=== PATIENT | female | born 1980 | race Caucasian/White ===

== ENCOUNTER 2016-10-18 05:05 | Inpatient (IN) | payer MEDICAID ==
[2016-10-18] MEDS ORDERED: Nalbuphine 20 MG/1 ML Amp IVPUSH PRN (12:47)
[2016-10-18] MEDS ORDERED: Sodium Chloride 0.9% 10 ML Syringe FLUSH PRN (12:47)
[2016-10-18] MEDS ORDERED: Ondansetron 4 MG/2 ML SDV IVPUSH PRN (12:47)
--- NOTE | 2016-10-18 12:50 | PCM.LDHP ---
L&D History of Present Illness - General Date of Service: 10/18/16 Admit Problem/Dx: Patient Status Order with Admit Dx/Problem 10/18/16 12:47 Patient Status [ADT] Routine Admission Diagnosis/Problem Admission Diagnosis/Problem Normal Source of Information: Patient History Limitations: Reports: No Limitations - History of Present Illness Introduction:: Patient is a 36-year-old 003 at 40-1/7 weeks gestation who presents for induction of labor. Doing well today. Having some intermittent contractions since last seen in clinic, but nothing consistent. Blood sugars have been well controlled. No other new concerns or complaints. 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: : 4 Para: 3 LMP (Approximate): Endocrine/Metabolic History: Reports: Diabetes, Gestational - Past Surgical History HEENT Surgical History: Reports: Oral Surgery Social & Family History - Tobacco Use Smoking Status *Q: Current Every Day Smoker Years of Tobacco use: 20 Packs/Tins Daily: 0.5 - Caffeine Use Caffeine Use: Reports: Coffee - Alcohol Use Alcohol Use History: No - Recreational Drug Use Recreational Drug Use: No H&P Review of Systems - Review of Systems: Review Of Systems: See Below General: Reports: No Symptoms Pulmonary: Reports: No Symptoms Cardiovascular: Reports: No Symptoms Gastrointestinal: Reports: No Symptoms Genitourinary: Reports: No Symptoms Musculoskeletal: Reports: No Symptoms Psychiatric: Reports: No Symptoms L&D Exam - Exam Exam: See Below - Vital Signs Weight: 125.509 kg - OB Specific Contraction Intensity: Mild Movement: Active Heart Tones: Present Heart Tones per Min: 130 Heart Rate (FHR) Variability: Moderate (6-25 bmp) Presentation: Vertex - Colin Score Colin Score Cervix Position: Midposition Colin Score Consistency: Soft Colin Score Effacement: >80% Colin Score Dilation: 1-2 cm Colin Score Infant's Station: -1 ,0 Colin Score Total: 9 - Exam General: Alert, Oriented, Cooperative Lungs: Clear to Auscultation, Normal Respiratory Effort Cardiovascular: Regular Rate, Regular Rhythm GI/Abdominal Exam: Soft, Non-Tender Genitourinary: Normal external exam Extremities: Normal Inspection Skin: Warm, Dry, Intact - Problem List (1) 40 weeks gestation of SNOMED Code(s): 45672648 ICD Code: Z3A.40 - 40 WEEKS GESTATION OF Status: Acute Current Visit: Yes (2) Gestational diabetes, diet controlled SNOMED Code(s): 64597232, 265653908 ICD Code: O24.410 - GESTATIONAL DIABETES MELLITUS IN , DIET CONTROLLED Status: Acute Current Visit: Yes Qualifiers: Trimester: third trimester Qualified Code(s): O24.410 - Gestational diabetes mellitus in , diet controlled (3) GBS (group B Streptococcus carrier), +RV culture, currently SNOMED Code(s): 24393379, 418144926 ICD Code: O99.820 - STREPTOCOCCUS B CARRIER STATE COMPLICATING Status: Acute Current Visit: Yes Problem List Initiated/Reviewed/Updated: Yes Orders Last 24hrs: Active Orders 24 hr Category Date Time Status Patient Status [ADT] Routine ADT 10/18/16 12:47 Active Activity as Tolerated [RC] PFP Care 10/18/16 12:47 Active Blood Glucose Check, Bedside [RC] Q4HR Care 10/18/16 12:49 Active Communication Order [RC] ASDIRECTED Care 10/18/16 12:47 Active Heart Tones [RC] ASDIRECTED Care 10/18/16 12:47 Active Notify Provider [RC] PFP Care 10/18/16 12:47 Active Notify Provider [RC] PRN Care 10/18/16 12:47 Active Peripheral IV Care [RC] . DIRECTED Care 10/18/16 12:47 Active Vital Signs [RC] PER UNIT ROUTINE Care 10/18/16 12:47 Active CBC W/O DIFF,HEMOGRAM [HEME] Routine Lab 10/18/16 12:47 Ordered TYPE AND SCREEN [BBK] Routine Lab 10/18/16 12:47 Ordered Clindamycin Phosphate [Cleocin] 900 mg Med 10/18/16 13:00 Ordered Sodium Chloride 0.9% [Normal Saline] 100 ml IV Q8H Lactated Ringers [Ringers, Lactated] 1,000 ml Med 10/18/16 13:00 Ordered IV ASDIRECTED Nalbuphine [Nubain] Med 10/18/16 12:47 Ordered 10 mg IVPUSH Q2H PRN Ondansetron [Zofran] Med 10/18/16 12:47 Ordered 4 mg IVPUSH Q4H PRN Oxytocin/Lactated Ringers [Pitocin in LR 10 Units/1,000 Med 10/18/16 13:00 Ordered ML] 10 unit in 1,000 ml IV .CONTINUOUS Sodium Chloride 0.9% [Saline Flush] Med 10/18/16 12:47 Ordered 10 ml FLUSH ASDIRECTED PRN Electronic Heart Tones Ext w TOCO [WOMSER] Oth 10/18/16 12:47 Ordered Routine Electronic Heart Tones Internal [WOMSER] Per Unit Ot 10/18/16 12:47 Ordered Routine Peripheral IV Insertion Adult [OM.PC] Routine Oth 10/18/16 12:47 Ordered Resuscitation Status Routine Resus Stat 10/18/16 12:47 Ordered Medication Orders Clindamycin Phosphate 900 mg/ (Sodium Chloride) 106 mls @ 100 mls/hr IV Q8H GEOVANNI Lactated Ringer's (Ringers, Lactated) 1,000 mls @ 40 mls/hr IV ASDIRECTED GEOVANNI Oxytocin/Lactated Ringer's (Pitocin In Lr 10 Units/1,000 Ml) 10 unit in 1,000 mls @ 500 mls/hr IV .CONTINUOUS GEOVANNI PRN Reason: Protocol Nalbuphine HCl (Nubain) 10 mg IVPUSH Q2H PRN PRN Reason: Pain (moderate 4-6) Ondansetron HCl (Zofran) 4 mg IVPUSH Q4H PRN PRN Reason: Nausea/Vomiting Assessment/Plan Comment:: 36 year old at 40-1/7 weeks gestation presents for induction of labor for gestational diabetes * CBC and type and screen * Blood sugars every 4 hours for now increasing to every 1 in active labor * GBS positive with penicillin and cephalosporin allergies. Will start clindamycin * Patient prefers to defer Pitocin if possible with induction. Wagner bulb placed and will proceed with AROM after closer to second dose of antibiotics * Anticipate Kelsey Garrido MD
[2016-10-18] MEDS ORDERED: Oxytocin/Lactated Ringers 10 UNIT/1,000 ML BAG IV SCH (13:00)
[2016-10-18] MEDS: Clindamycin Phosphate 900 MG in Sodium Chloride 0.9% 100 ML IV SCH ×2 (13:45→20:27)
--- NOTE | 2016-10-18 16:53 | PCM.PNLD ---
Labor Progress Note - VS & Meds Vital Signs: Last Vital Signs Temp 36.8 C 10/18/16 12:47 Pulse 88 10/18/16 12:47 Resp 16 10/18/16 12:47 BP 108/60 10/18/16 12:47 Pulse Ox Active Medications: Current Medications Clindamycin Phosphate 900 mg/ (Sodium Chloride) 106 mls @ 212 mls/hr IV Q8H GEOVANNI Last Admin: 10/18/16 13:45 Dose: 212 mls/hr Lactated Ringer's (Ringers, Lactated) 1,000 mls @ 40 mls/hr IV ASDIRECTED GEOVANNI Oxytocin/Lactated Ringer's (Pitocin In Lr 10 Units/1,000 Ml) 10 unit in 1,000 mls @ 500 mls/hr IV .CONTINUOUS GEOVANNI PRN Reason: Protocol Oxytocin/Lactated Ringer's (Pitocin In Lr 10 Units/1,000 Ml) 10 unit in 1,000 mls @ 12 mls/hr IV TITRATE GEOVANNI; 2 MUNITS/MIN PRN Reason: Protocol Nalbuphine HCl (Nubain) 10 mg IVPUSH Q2H PRN PRN Reason: Pain (moderate 4-6) Ondansetron HCl (Zofran) 4 mg IVPUSH Q4H PRN PRN Reason: Nausea/Vomiting Sodium Chloride (Saline Flush) 10 ml FLUSH ASDIRECTED PRN PRN Reason: Keep Vein Open - Uterine Contractions Uterine Monitoring Mode: External [place] Contraction Intensity: Mild to Moderate Uterine Resting Tone: Soft - Monitoring Monitor Mode: External Ultrasound Heart Rate (FHR) Baseline: 135 Heart Rate (FHR) Variability: Moderate (6-25 bmp) Accelerations: Present, 15x15 Decelerations: None Strip Review: Category I - Labor Progress (Free Text) Labor Progress: Patient doing well. Bergman bulb still in place. Will start pitocin now. Will AROM when bergman bulb out. Continue Clindamycin for GBS prophylaxis
[2016-10-18] MEDS: Lactated Ringers 1,000 ML IV SCH (17:15)
[2016-10-18] MEDS: Oxytocin/Lactated Ringers 10 UNIT/1,000 ML BAG IV SCH (17:15)
--- NOTE | 2016-10-18 19:38 | PCM.PNLD ---
Labor Progress Note - VS & Meds Vital Signs: Last Vital Signs Temp 36.8 C 10/18/16 12:47 Pulse 88 10/18/16 12:47 Resp 16 10/18/16 12:47 BP 108/60 10/18/16 12:47 Pulse Ox Active Medications: Current Medications Clindamycin Phosphate 900 mg/ (Sodium Chloride) 106 mls @ 212 mls/hr IV Q8H GEOVANNI Last Admin: 10/18/16 13:45 Dose: 212 mls/hr Lactated Ringer's (Ringers, Lactated) 1,000 mls @ 40 mls/hr IV ASDIRECTED GEOVANNI Last Admin: 10/18/16 17:15 Dose: 40 mls/hr Oxytocin/Lactated Ringer's (Pitocin In Lr 10 Units/1,000 Ml) 10 unit in 1,000 mls @ 500 mls/hr IV .CONTINUOUS GEOVANNI PRN Reason: Protocol Oxytocin/Lactated Ringer's (Pitocin In Lr 10 Units/1,000 Ml) 10 unit in 1,000 mls @ 12 mls/hr IV TITRATE GEOVANNI; 2 MUNITS/MIN PRN Reason: Protocol Last Titration: 10/18/16 18:45 Dose: 8 munits/min, 48 mls/hr Nalbuphine HCl (Nubain) 10 mg IVPUSH Q2H PRN PRN Reason: Pain (moderate 4-6) Ondansetron HCl (Zofran) 4 mg IVPUSH Q4H PRN PRN Reason: Nausea/Vomiting Sodium Chloride (Saline Flush) 10 ml FLUSH ASDIRECTED PRN PRN Reason: Keep Vein Open - Uterine Contractions Uterine Monitoring Mode: External [place] Contraction Intensity: Moderate Uterine Resting Tone: Soft - Monitoring Monitor Mode: External Ultrasound Heart Rate (FHR) Baseline: 130 Heart Rate (FHR) Variability: Moderate (6-25 bmp) Accelerations: Present, 15x15 Decelerations: None Strip Review: Category I - Vaginal Exam Dilation (cm): 4 Effacement (Percent): 80 Station: -1 Cervical Position: Midposition - Labor Progress (Free Text) Labor Progress: Patient doing well. Pitocin at 8. Wagner bulb just came out. AROM performed with release of clear fluid. Next dose of Clindamycin due at 2100. Continue present management
[2016-10-19] MEDS ORDERED: Calcium Carbonate 500 MG Tab.Chew PO PRN (00:10)
[2016-10-19] MEDS: Lactated Ringers 1,000 ML IV SCH ×2 (00:36→02:16)
[2016-10-19] MEDS ORDERED: Bupivacaine/fentaNYL/NS 100 ML Bag EPIDUR SCH (00:45)
--- NOTE | 2016-10-19 00:45 | PCM.PREANE ---
Preanesthetic Assessment - Procedure Proposed Procedure: Continuous labor epidural - Anesthesia/Transfusion/Family Hx Anesthesia History: No Prior Anesthesia Family History of Anesthesia Reaction: No Transfusion History: No Prior Transfusion(s) - Review of Systems General: No Symptoms Pulmonary: No Symptoms Cardiovascular: No Symptoms Gastrointestinal: No Symptoms Neurological: No Symptoms Other: Reports: None, Diabetes (gestational with current ) - Physical Assessment NPO Status Date: 10/19/16 NPO Status Time: 19:00 Respiratory Rate: 16 Vital Signs: Last Vital Signs Temp 36.8 C 10/18/16 12:47 Pulse 88 10/18/16 12:47 Resp 16 10/18/16 12:47 BP 108/60 10/18/16 12:47 Pulse Ox Height: 1.65 m Weight: 122.47 kg ASA Class: 2 Mental Status: Alert & Oriented x3 Airway Class: Mallampati = 2 Dentition: Reports: Caries (Poor dentition) Thyro-Mental Finger Breadths: 3 Mouth Opening Finger Breadths: 3 ROM/Head Extension: Full Lungs: Clear to Auscultation, Normal Respiratory Effort Cardiovascular: Regular Rate, Regular Rhythm, No Murmurs - Lab Values: Laboratory Last Values WBC 10.06 K/mm3 (3.98-10.04) H 10/18/16 12:24 RBC 4.67 M/mm3 (3.98-5.22) 10/18/16 12:24 Hgb 12.0 gm/L (11.2-15.7) 10/18/16 12:24 Hct 36.7 % (34.1-44.9) 10/18/16 12:24 MCV 78.6 fl (79.4-94.8) L 10/18/16 12:24 MCH 25.7 pg (25.6-32.2) 10/18/16 12:24 MCHC 32.7 g/dl (32.2-35.5) 10/18/16 12:24 RDW Std Deviation 44.6 fL (36.4-46.3) 10/18/16 12:24 Plt Count 361 K/mm3 (182-369) 10/18/16 12:24 MPV 10.2 fl (9.4-12.3) 10/18/16 12:24 POC Glucose 98 mg/dL (70-105) 07/20/17 00:34 Blood Type A POSITIVE 10/18/16 12:24 Gel Antibody Screen Negative 10/18/16 12:24 - Allergies Allergies/Adverse Reactions: Allergies Allergy/AdvReac Type Severity Reaction Status Date / Time amoxicillin Allergy Severe Anaphylactic Verified 10/05/16 11:36 Shock cefaclor [From Ceclor] Allergy Hives Verified 03/06/16 17:40 Penicillins Allergy Hives Verified 03/06/16 17:40 prochlorperazine Allergy Hives Verified 03/06/16 17:40 [From Compazine] Sulfa (Sulfonamide Allergy Hives Verified 03/06/16 17:40 Antibiotics) - Acknowledgements Anesthesia Type Planned: Epidural Pt an Appropriate Candidate for the Planned Anesthesia: Yes Alternatives and Risks of Anesthesia Discussed w Pt/Guardian: Yes Pt/Guardian Understands and Agrees with Anesthesia Plan: Yes PreAnesthesia Questionnaire Respiratory History: Reports: Asthma 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: Endocrine/Metabolic History: Reports: Diabetes, Gestational, Obesity/BMI 30+ - Past Surgical History HEENT Surgical History: Reports: Oral Surgery - SUBSTANCE USE Smoking Status *Q: Current Every Day Smoker (1/2 ppd x 20 yrs) Tobacco Use Within Last Twelve Months: Cigarettes Second Hand Smoke Exposure: Yes Days Per Week of Alcohol Use: 0 Recreational Drug Use History: No - HOME MEDS Home Medications: Home Meds Cmb#95/Iron/FA/DHA [ + Dha Combo Pack] 1 tab PO DAILY 03/06/16 [History] - CURRENT (IN HOUSE) MEDS Current Meds: Current Medications Calcium Carbonate/Glycine (Tums) 500 mg PO Q2HR PRN PRN Reason: Indigestion Clindamycin Phosphate 900 mg/ (Sodium Chloride) 106 mls @ 212 mls/hr IV Q8H [facility] Last Admin: 10/18/16 20:27 Dose: 212 mls/hr Lactated Ringer's (Ringers, Lactated) 1,000 mls @ 40 mls/hr IV ASDIRECTED [facility] Last Admin: 10/19/16 00:36 Dose: 40 mls/hr Oxytocin/Lactated Ringer's (Pitocin In Lr 10 Units/1,000 Ml) 10 unit in 1,000 mls @ 500 mls/hr IV .CONTINUOUS GEOVANNI PRN Reason: Protocol Oxytocin/Lactated Ringer's (Pitocin In Lr 10 Units/1,000 Ml) 10 unit in 1,000 mls @ 12 mls/hr IV TITRATE GEOVANNI; 2 MUNITS/MIN PRN Reason: Protocol Last Titration: 10/18/16 18:45 Dose: 8 munits/min, 48 mls/hr Nalbuphine HCl (Nubain) 10 mg IVPUSH Q2H PRN PRN Reason: Pain (moderate 4-6) Last Admin: 10/18/16 21:03 Dose: 10 mg Ondansetron HCl (Zofran) 4 mg IVPUSH Q4H PRN PRN Reason: Nausea/Vomiting Sodium Chloride (Saline Flush) 10 ml FLUSH ASDIRECTED PRN PRN Reason: Keep Vein Open
[2016-10-19] MEDS ORDERED: Sodium Chloride 0.9% 10 ML ONE (01:19)
--- NOTE | 2016-10-19 05:05 | PCM.DEL ---
L & D Note - General Info Date of Service: 10/19/16 - Delivery Note Labor: Induced by ARM, Induced by Oxytocin Delivery Outcome: Livebirth Infant Delivery Method: Spontaneous Vaginal Delivery Infant Delivery Mode: Spontaneous Presentation: Right Occiput Anterior (JENNIFER) Nuchal Cord: Present, Reduced Anesthesia Type: Epidural Amniotic Fluid Description: Clear Episiotomy Type: None Laceration: None Placenta: Intact, Spontaneous Cord: 3 Vessels Estimated Blood Loss: 250 : Bulb Syringe, Stimulated, Warmed, [place] Used, Warmer Used Delivery Comments (Free Text/Narrative):: Patient found to be complete and began pushing. With maternal pushing effort head delivered from an JENNIFER presentation. Nuchal cord present and reduced. With gentle downward traction shoulders and body delivered. Infant placed on maternal abdomen. Cord clamped and cut. Cord blood obtained. Placenta allowed time to separate and expelled. Inspection of the perineum showed no lacerations. - Patient Data Vitals - most recent: Last Vital Signs Temp 36.8 C 10/18/16 12:47 Pulse 88 10/18/16 12:47 Resp 16 10/19/16 00:47 BP 108/60 10/18/16 12:47 Pulse Ox Weight - most recent: 122.47 kg I&O - last 24 hours: Intake & Output 10/18/16 10/18/16 10/19/16 14:59 22:59 06:59 Intake Total 290 Balance 290 Lab Results last 24 hrs: Laboratory Results - last 24 hr 10/18/16 10/18/16 10/18/16 Range/Units 12:24 12:24 16:30 WBC 10.06 H (3.98-10.04) K/mm3 RBC 4.67 (3.98-5.22) M/mm3 Hgb 12.0 (11.2-15.7) gm/L Hct 36.7 (34.1-44.9) % MCV 78.6 L (79.4-94.8) fl MCH 25.7 (25.6-32.2) pg MCHC 32.7 (32.2-35.5) g/dl RDW Std Deviation 44.6 (36.4-46.3) fL Plt Count 361 (182-369) K/mm3 MPV 10.2 (9.4-12.3) fl POC Glucose 93 (70-105) mg/dL Blood Type A POSITIVE Gel Antibody Screen Negative 10/18/16 10/18/16 10/19/16 Range/Units 20:25 22:13 00:34 WBC (3.98-10.04) K/mm3 RBC (3.98-5.22) M/mm3 Hgb (11.2-15.7) gm/L Hct (34.1-44.9) % MCV (79.4-94.8) fl MCH (25.6-32.2) pg MCHC (32.2-35.5) g/dl RDW Std Deviation (36.4-46.3) fL Plt Count (182-369) K/mm3 MPV (9.4-12.3) fl POC Glucose 107 H 122 H 98 (70-105) mg/dL Blood Type Gel Antibody Screen 10/19/16 Range/Units 03:25 WBC (3.98-10.04) K/mm3 RBC (3.98-5.22) M/mm3 Hgb (11.2-15.7) gm/L Hct (34.1-44.9) % MCV (79.4-94.8) fl MCH (25.6-32.2) pg MCHC (32.2-35.5) g/dl RDW Std Deviation (36.4-46.3) fL Plt Count (182-369) K/mm3 MPV (9.4-12.3) fl POC Glucose 118 H (70-105) mg/dL Blood Type Gel Antibody Screen Med Orders - Current: Current Medications Calcium Carbonate/Glycine (Tums) 500 mg PO Q2HR PRN PRN Reason: Indigestion Last Admin: 10/19/16 01:39 Dose: 500 mg Fentanyl/Bupivacaine HCl (Fentanyl/Bupivacaine/Ns 2 Mcg-0.125% 100 Ml) 100 ml EPIDUR ASDIRECTED [facility] Last Admin: 10/19/16 01:26 Dose: 100 ml Clindamycin Phosphate 900 mg/ (Sodium Chloride) 106 mls @ 212 mls/hr IV Q8H [facility] Last Admin: 10/18/16 20:27 Dose: 212 mls/hr Lactated Ringer's (Ringers, Lactated) 1,000 mls @ 40 mls/hr IV ASDIRECTED [facility] Last Admin: 10/19/16 02:16 Dose: 40 mls/hr Oxytocin/Lactated Ringer's (Pitocin In Lr 10 Units/1,000 Ml) 10 unit in 1,000 mls @ 500 mls/hr IV .CONTINUOUS GEOVANNI PRN Reason: Protocol Oxytocin/Lactated Ringer's (Pitocin In Lr 10 Units/1,000 Ml) 10 unit in 1,000 mls @ 12 mls/hr IV TITRATE GEOVANNI; 2 MUNITS/MIN PRN Reason: Protocol Last Titration: 10/18/16 18:45 Dose: 8 munits/min, 48 mls/hr Nalbuphine HCl (Nubain) 10 mg IVPUSH Q2H PRN PRN Reason: Pain (moderate 4-6) Last Admin: 10/18/16 21:03 Dose: 10 mg Ondansetron HCl (Zofran) 4 mg IVPUSH Q4H PRN PRN Reason: Nausea/Vomiting Sodium Chloride (Saline Flush) 10 ml FLUSH ASDIRECTED PRN PRN Reason: Keep Vein Open Discontinued Medications Sodium Chloride (Normal Saline) Confirm Administered Dose 10 mls @ as directed .ROUTE .K-MED ONE Stop: 10/19/16 01:20 - Problem List & Annotations (1) 40 weeks gestation of SNOMED Code(s): 44965286 Code(s): Z3A.40 - 40 WEEKS GESTATION OF Status: Acute Current Visit: Yes (2) Gestational diabetes, diet controlled SNOMED Code(s): 24312004, 143801005 Code(s): O24.410 - GESTATIONAL DIABETES MELLITUS IN , DIET CONTROLLED Status: Acute Current Visit: Yes Qualifiers: Trimester: third trimester Qualified Code(s): O24.410 - Gestational diabetes mellitus in , diet controlled (3) GBS (group B Streptococcus carrier), +RV culture, currently SNOMED Code(s): 87457905, 794873808 Code(s): O99.820 - STREPTOCOCCUS B CARRIER STATE COMPLICATING Status: Acute Current Visit: Yes (4) Vaginal delivery SNOMED Code(s): 982149370 Code(s): O80 - ENCOUNTER FOR FULL-TERM UNCOMPLICATED DELIVERY Status: Acute Current Visit: Yes - Problem List Review Problem List Initiated/Reviewed/Updated: Yes - My Orders Last 24 Hours: My Active Orders 10/18/16 12:47 Patient Status [ADT] Routine Activity as Tolerated [RC] PFP Communication Order [RC] ASDIRECTED Notify Provider [RC] PFP Notify Provider [RC] PRN Vital Signs [RC] 04,12,20 Nalbuphine [Nubain] 10 mg IVPUSH Q2H PRN Ondansetron [Zofran] 4 mg IVPUSH Q4H PRN Sodium Chloride 0.9% [Saline Flush] 10 ml FLUSH ASDIRECTED PRN Electronic Heart Tones Ext w TOCO [WOMSER] Routine Electronic Heart Tones Internal [WOMSER] Per Unit Routine Peripheral IV Insertion Adult [OM.PC] Routine Resuscitation Status Routine 10/18/16 12:49 Blood Glucose Check, Bedside [RC] Q4HR 10/18/16 13:00 Clindamycin Phosphate [Cleocin] 900 mg Sodium Chloride 0.9% [Normal Saline] 100 ml IV Q8H Lactated Ringers [Ringers, Lactated] 1,000 ml IV ASDIRECTED Oxytocin/Lactated Ringers [Pitocin in LR 10 Units/1,000 ML] 10 unit in 1,000 ml IV .CONTINUOUS 10/18/16 16:45 Oxytocin/Lactated Ringers [Pitocin in LR 10 Units/1,000 ML] 10 unit in 1,000 ml IV TITRATE 10/18/16 Dinner Regular Diet [DIET] 10/19/16 00:10 Calcium Carbonate [Tums] 500 mg PO Q2HR PRN - Assessment Assessment:: 36 year old G4 now P4004 PPD#0 from at 40-2/7 weeks gestation - Plan Plan:: * Routine cares * Discharge home in 1-2 days [facility] * Fasting blood sugar tomorrow AM * 2hr GTT at check Kelsey Garrido MD
[2016-10-19] MEDS: Oxytocin/Lactated Ringers 10 UNIT/1,000 ML BAG IV SCH (05:30)
[2016-10-19] MEDS ORDERED: Acetaminophen 325 MG Tab PO PRN (07:03)
[2016-10-19] MEDS ORDERED: Docusate Sodium 100 MG Cap PO PRN (07:03)
[2016-10-19] MEDS ORDERED: Benzocaine/Menthol 20%-0.5% Spray 56 GM Canister TOP PRN (07:03)
[2016-10-19] MEDS ORDERED: Witch Hazel Medicated Pads 100/Jar TOP PRN (07:03)
[2016-10-19] MEDS ORDERED: Bupivacaine 0.25% 10 ML SDV ONE (07:03)
[2016-10-19] MEDS: Ibuprofen 600 MG Tab PO PRN ×2 (12:29→20:35)
--- NOTE | 2016-10-20 07:36 | PCM.PNPP ---
- General Info Date of Service: 10/20/16 Functional Status: Reports: Pain Controlled, Tolerating Diet, Ambulating, Urinating - Review of Systems General: Reports: No Symptoms Pulmonary: Reports: No Symptoms Cardiovascular: Reports: No Symptoms Gastrointestinal: Reports: No Symptoms Genitourinary: Reports: No Symptoms Musculoskeletal: Reports: No Symptoms - Patient Data Vital Signs - most recent: Last Vital Signs Temp 36.4 C 10/20/16 05:27 Pulse 82 10/20/16 05:27 Resp 19 10/20/16 05:27 BP 125/68 10/20/16 05:27 Pulse Ox 96 10/20/16 05:27 Weight - most recent: 122.47 kg Lab Results - last 24 hrs: Laboratory Results - last 24 hr 10/20/16 Range/Units 06:37 POC Glucose 91 (70-105) mg/dL Med Orders - Current: Current Medications Acetaminophen (Tylenol) 650 mg PO Q4H PRN PRN Reason: mild pain or fever Benzocaine/Menthol (Dermoplast Pain Relief [place]) 0 gm TOP ASDIRECTED PRN PRN Reason: Perineal Comfort Measure Docusate Sodium (Colace) 100 mg PO BID PRN PRN Reason: Constipation Ibuprofen (Motrin) 600 mg PO Q6H PRN PRN Reason: Mild pain or fever Last Admin: 10/19/16 20:35 Dose: 600 mg Witch Antonella (Tucks) 1 pad TOP ASDIRECTED PRN PRN Reason: Hemorrhoid pain Discontinued Medications Bupivacaine HCl (Sensorcaine-Mpf 0.25%) 10 ml .ROUTE .STK-MED ONE Stop: 10/19/16 07:04 Calcium Carbonate/Glycine (Tums) 500 mg PO Q2HR PRN PRN Reason: Indigestion Last Admin: 10/19/16 01:39 Dose: 500 mg Fentanyl/Bupivacaine HCl (Fentanyl/Bupivacaine/Ns 2 Mcg-0.125% 100 Ml) 100 ml EPIDUR ASDIRECTED [facility] Last Admin: 10/19/16 01:26 Dose: 100 ml Clindamycin Phosphate 900 mg/ (Sodium Chloride) 106 mls @ 212 mls/hr IV Q8H [facility] Last Admin: 10/18/16 20:27 Dose: 212 mls/hr Lactated Ringer's (Ringers, Lactated) 1,000 mls @ 40 mls/hr IV ASDIRECTED [facility] Last Admin: 10/19/16 02:16 Dose: 40 mls/hr Oxytocin/Lactated Ringer's (Pitocin In Lr 10 Units/1,000 Ml) 10 unit in 1,000 mls @ 500 mls/hr IV .CONTINUOUS GEOVANNI PRN Reason: Protocol Oxytocin/Lactated Ringer's (Pitocin In Lr 10 Units/1,000 Ml) 10 unit in 1,000 mls @ 12 mls/hr IV TITRATE GEOVANNI; 2 MUNITS/MIN PRN Reason: Protocol Last Admin: 10/19/16 05:30 Dose: 500 munits/min, 3,000 mls/hr Sodium Chloride (Normal Saline) Confirm Administered Dose 10 mls @ as directed .ROUTE .[facility]-MED ONE Stop: 10/19/16 01:20 Nalbuphine HCl (Nubain) 10 mg IVPUSH Q2H PRN PRN Reason: Pain (moderate 4-6) Last Admin: 10/18/16 21:03 Dose: 10 mg Ondansetron HCl (Zofran) 4 mg IVPUSH Q4H PRN PRN Reason: Nausea/Vomiting Sodium Chloride (Saline Flush) 10 ml FLUSH ASDIRECTED PRN PRN Reason: Keep Vein Open - Interaction Disposition, : in Room with Family Infant Interaction: Holding Feeding: Bottle Fed Infant Support Person: - Recovery Exam Fundal Tone: Firm Fundal Level: 1 Fingerbreadths Below Umbilicus Fundal Placement: Midline Lochia Amount: Small Lochia Color: Rubra/Red Perineum Description: Intact, Minimal Bruising/Swelling Bladder Status: Voiding - Exam General: alert, oriented, cooperative GI/Abdominal Exam: Soft, Non-Tender Extremities: Normal Inspection Skin: warm, dry, intact - Problem List & Annotations (1) 40 weeks gestation of SNOMED Code(s): 10796538 Code(s): Z3A.40 - 40 WEEKS GESTATION OF Status: Acute Current Visit: Yes (2) Gestational diabetes, diet controlled SNOMED Code(s): 56779628, 335325608 Code(s): O24.410 - GESTATIONAL DIABETES MELLITUS IN , DIET CONTROLLED Status: Acute Current Visit: Yes Qualifiers: Trimester: third trimester Qualified Code(s): O24.410 - Gestational diabetes mellitus in , diet controlled (3) GBS (group B Streptococcus carrier), +RV culture, currently SNOMED Code(s): 35961830, 147943759 Code(s): O99.820 - STREPTOCOCCUS B CARRIER STATE COMPLICATING Status: Acute Current Visit: Yes (4) Vaginal delivery SNOMED Code(s): 433212883 Code(s): O80 - ENCOUNTER FOR FULL-TERM UNCOMPLICATED DELIVERY Status: Acute Current Visit: Yes - Problem List Review Problem List Initiated/Reviewed/Updated: Yes - My Orders Last 24 Hours: My Active Orders 10/19/16 07:03 Activity as Tolerated [RC] PER UNIT ROUTINE Vital Signs [RC] 04,12,20 Acetaminophen [Tylenol] 650 mg PO Q4H PRN Benzocaine/Menthol [Dermoplast Pain Relief [place]] See Dose Instructions TOP ASDIRECTED PRN Docusate Sodium [Colace] 100 mg PO BID PRN Ibuprofen [Motrin] 600 mg PO Q6H PRN Witch Antonella [Tucks] 1 pad TOP ASDIRECTED PRN Assess Lochia [WOMSER] Per Unit Routine Assess Uterine Involution [WOMSER] Per Unit Routine Breast Pump [WOMSER] Per Unit Routine Heat Therapy [OM.PC] PRN Ice Therapy [OM.PC] Per Unit Routine Perineal Care [OM.PC] Per Unit Routine Peripheral IV Discontinue [OM.PC] Routine Sitz Bath [OM.PC] Per Unit Routine 10/19/16 Breakfast Regular Diet [DIET] 10/20/16 07:03 Heat Therapy [OM.PC] PRN - Assessment Assessment:: 36 year old G4 now P4004 PPD#1 from at 40-2/7 weeks gestation - Plan Plan:: * Routine cares * Bottle feeding * Discharge home today [facility] * Fasting blood sugar this morning normal * 2hr GTT at check Kelsey Garrido MD
--- NOTE | 2016-10-20 07:40 | PCM.DCSUM1 ---
Discharge Summary - Discharge Data Discharge Date: 10/20/16 Discharge Disposition: Home, Self-Care 01 Condition: Good - Discharge Diagnosis/Problem(s) (1) 40 weeks gestation of SNOMED Code(s): 29756622 ICD Code: Z3A.40 - 40 WEEKS GESTATION OF Status: Acute Current Visit: Yes (2) Gestational diabetes, diet controlled SNOMED Code(s): 93423544, 359168894 ICD Code: O24.410 - GESTATIONAL DIABETES MELLITUS IN , DIET CONTROLLED Status: Acute Current Visit: Yes Qualifiers: Trimester: third trimester Qualified Code(s): O24.410 - Gestational diabetes mellitus in , diet controlled (3) GBS (group B Streptococcus carrier), +RV culture, currently SNOMED Code(s): 18562775, 548667270 ICD Code: O99.820 - STREPTOCOCCUS B CARRIER STATE COMPLICATING Status: Acute Current Visit: Yes (4) Vaginal delivery SNOMED Code(s): 789350482 ICD Code: O80 - ENCOUNTER FOR FULL-TERM UNCOMPLICATED DELIVERY Status: Acute Current Visit: Yes - Patient Summary/Data Complications: None Consults: None Recommended Follow-up Testing/Procedures: Follow up in 5-6 weeks for check with 2hr GTT Hospital Course: 36 y/o presented at 40 1/7 wks gestation for IOL for gestational diabetes. This was done with bergman bulb/pitocin and eventual AROM. She progressed well to complete dilation and underwent an uncomplicated . See delivery note. she did well and was discharged home on PPD#1 - Patient Instructions Diet: Regular Diet as Tolerated Activity: As Tolerated Activity, Other: Pelvic Rest for 6 weeks Driving: May Drive Today Showering/Bathing: May Shower Showering/Bathing, Other: May bathe Notify Provider of: Fever, Increased Pain, Swelling and Redness, Drainage, Nausea and/or Vomiting - Discharge Plan Home Medications: Home Meds Cmb#95/Iron/FA/DHA [ + Dha Combo Pack] 1 tab PO DAILY 03/06/16 [History] Docusate Sodium [Colace] 100 mg PO BID PRN #0 cap 10/20/16 [Rx] Ibuprofen [IJD: Ibuprofen] 600 mg PO Q6H PRN #0 tablet 10/20/16 [Rx] Patient Handouts: Formula Feeding, Vaginal Delivery, Care After Referrals: Kelsey Garrido MD [Primary Care Provider] - (5-6 weeks for check ) - Discharge Summary/Plan Comment DC Time >30 min.: No - Patient Data Vitals - Most Recent: Last Vital Signs Temp 36.4 C 10/20/16 05:27 Pulse 82 10/20/16 05:27 Resp 19 10/20/16 05:27 BP 125/68 10/20/16 05:27 Pulse Ox 96 10/20/16 05:27 Weight - Most Recent: 122.47 kg Lab Results - Last 24 hrs: Laboratory Results - last 24 hr 10/20/16 Range/Units 06:37 POC Glucose 91 (70-105) mg/dL Med Orders - Current: Current Medications Acetaminophen (Tylenol) 650 mg PO Q4H PRN PRN Reason: mild pain or fever Benzocaine/Menthol (Dermoplast Pain Relief [place]) 0 gm TOP ASDIRECTED PRN PRN Reason: Perineal Comfort Measure Docusate Sodium (Colace) 100 mg PO BID PRN PRN Reason: Constipation Ibuprofen (Motrin) 600 mg PO Q6H PRN PRN Reason: Mild pain or fever Last Admin: 10/19/16 20:35 Dose: 600 mg Witch Antonella (Tucks) 1 pad TOP ASDIRECTED PRN PRN Reason: Hemorrhoid pain Discontinued Medications Bupivacaine HCl (Sensorcaine-Mpf 0.25%) 10 ml .ROUTE .STK-MED ONE Stop: 10/19/16 07:04 Calcium Carbonate/Glycine (Tums) 500 mg PO Q2HR PRN PRN Reason: Indigestion Last Admin: 10/19/16 01:39 Dose: 500 mg Fentanyl/Bupivacaine HCl (Fentanyl/Bupivacaine/Ns 2 Mcg-0.125% 100 Ml) 100 ml EPIDUR ASDIRECTED [facility] Last Admin: 10/19/16 01:26 Dose: 100 ml Clindamycin Phosphate 900 mg/ (Sodium Chloride) 106 mls @ 212 mls/hr IV Q8H [facility] Last Admin: 10/18/16 20:27 Dose: 212 mls/hr Lactated Ringer's (Ringers, Lactated) 1,000 mls @ 40 mls/hr IV ASDIRECTED [facility] Last Admin: 10/19/16 02:16 Dose: 40 mls/hr Oxytocin/Lactated Ringer's (Pitocin In Lr 10 Units/1,000 Ml) 10 unit in 1,000 mls @ 500 mls/hr IV .CONTINUOUS GEOVANNI PRN Reason: Protocol Oxytocin/Lactated Ringer's (Pitocin In Lr 10 Units/1,000 Ml) 10 unit in 1,000 mls @ 12 mls/hr IV TITRATE GEOVANNI; 2 MUNITS/MIN PRN Reason: Protocol Last Admin: 10/19/16 05:30 Dose: 500 munits/min, 3,000 mls/hr Sodium Chloride (Normal Saline) Confirm Administered Dose 10 mls @ as directed .ROUTE .[facility]-MED ONE Stop: 10/19/16 01:20 Nalbuphine HCl (Nubain) 10 mg IVPUSH Q2H PRN PRN Reason: Pain (moderate 4-6) Last Admin: 10/18/16 21:03 Dose: 10 mg Ondansetron HCl (Zofran) 4 mg IVPUSH Q4H PRN PRN Reason: Nausea/Vomiting Sodium Chloride (Saline Flush) 10 ml FLUSH ASDIRECTED PRN PRN Reason: Keep Vein Open *Q Meaningful Use (DIS) - VTE *Q VTE Criteria *Q: - Stroke *Q Stroke Criteria *Q: - AMI *Q AMI Criteria *Q:
[2016-10-20 10:05] VITALS: BP 109/72
== END 2016-10-20 09:30 | disposition home or self-care (01) | DRG 775 ==
LOC: JD.OB 05:05 → OBSVTOIN 10-19 05:05 → JD.OB 10-19 05:05
PROVIDERS: ADMIT Obstetrics & Gynecology; ATTEND Obstetrics & Gynecology
PROC: 10E0XZZ Delivery of Products of Conception, External Approach (ICD-10-PCS; principal; 2016-10-19)
PROC: 3E033VJ Introduction of Other Hormone into Peripheral Vein, Percutaneous Approach (ICD-10-PCS; 2016-10-19)
PROC: 10907ZC Drainage of Amniotic Fluid, Therapeutic from Products of Conception, Via Natural or Artificial Opening (ICD-10-PCS; 2016-10-19)
PROC: 00HU33Z Insertion of Infusion Device into Spinal Canal, Percutaneous Approach (ICD-10-PCS; 2016-10-19)
PROC: 3E0R3CZ (ICD-10-PCS; 2016-10-19)
DX: O24.420 Gestational diabetes mellitus in childbirth, diet controlled (principal); O99.334 Smoking (tobacco) complicating childbirth; O69.81X0 Labor and delivery complicated by cord around neck, without compression, not applicable or unspecified; O99.820 Streptococcus B carrier state complicating pregnancy; Z3A.40 40 weeks gestation of pregnancy; Z37.0 Single live birth; Z88.0 Allergy status to penicillin; Z88.1 Allergy status to other antibiotic agents; Z88.2 Allergy status to sulfonamides; Z88.8 Allergy status to other drugs, medicaments and biological substances
CPT/HCPCS: 36415; 82962; 85027; 86850; 86900; 86901; A9270-GY; J2300; J2590; J7030; J7120

== ENCOUNTER 2017-03-29 18:07 | Emergency (ER) | payer MEDICAID ==
[2017-03-29 18:22] VITALS: BP 146/78
--- NOTE | 2017-03-29 18:59 | EDM.PDOC ---
ED HPI GENERAL MEDICAL PROBLEM - General Chief Complaint: Lower Extremity Injury/Pain Stated Complaint: R KNEE PAIN Time Seen by Provider: 03/29/17 18:18 Source of Information: Reports: Patient History Limitations: Reports: No Limitations - History of Present Illness INITIAL COMMENTS - FREE TEXT/NARRATIVE: The patient presents with right knee pain. The pain is to the medial part of her knee. She does not remember a specific instance where she hurt it but the pain is getting progressively worse. She has no other complaints. She says her knee will pop at times and it feels unstable. Onset: Gradual Duration: Week(s): (2) Location: Reports: Lower Extremity, Right (Medial knee) Quality: Reports: Sharp Severity: Moderate Improves with: Reports: Immobilization Worsens with: Reports: Movement Associated Symptoms: Reports: No Other Symptoms Right Knee Pain Score (Numeric/FACES): 8 - Related Data Allergies Allergy/AdvReac Type Severity Reaction Status Date / Time amoxicillin Allergy Severe Anaphylactic Verified 03/29/17 18:23 Shock cefaclor [From Ceclor] Allergy Hives Verified 03/29/17 18:23 Penicillins Allergy Hives Verified 03/29/17 18:23 prochlorperazine Allergy Hives Verified 03/29/17 18:23 [From Compazine] Sulfa (Sulfonamide Allergy Hives Verified 03/29/17 18:23 Antibiotics) Home Meds: Home Meds Hydrocodone/Acetaminophen [Hydrocodon-Acetaminophen 5-325] 1 - 2 each PO Q6HR PRN #20 tablet 03/29/17 [Rx] Past Medical History Respiratory History: Reports: Asthma Other Respiratory History: mild exercise induced [employer] History: Reports: Endocrine/Metabolic History: Reports: Diabetes, Gestational, Obesity/BMI 30+ - Past Surgical History HEENT Surgical History: Reports: Oral Surgery Social & Family History - Family History Family Medical History: Noncontributory - Tobacco Use Smoking Status *Q: Current Every Day Smoker Years of Tobacco use: 20 Packs/Tins Daily: 1 Used Tobacco, but Quit: No Second Hand Smoke Exposure: Yes - Caffeine Use Caffeine Use: Reports: Coffee - Alcohol Use Days Per Week of Alcohol Use: 0 - Recreational Drug Use Recreational Drug Use: No Review of Systems - Review of Systems Review Of Systems: See Below Constitutional: Reports: No Symptoms Eyes: Reports: No Symptoms Ears: Reports: No Symptoms Nose: Reports: No Symptoms Mouth/Throat: Reports: No Symptoms Respiratory: Reports: No Symptoms Cardiovascular: Reports: No Symptoms GI/Abdominal: Reports: No Symptoms Genitourinary: Reports: No Symptoms Musculoskeletal: Reports: Joint Pain (Right medial knee) Skin: Reports: No Symptoms Neurological: Reports: No Symptoms ED EXAM, GENERAL - Physical Exam Exam: See Below Exam Limited By: No Limitations General Appearance: Alert, No Apparent Distress Ears: Normal External Exam Nose: Normal Inspection Head: Atraumatic, Normocephalic Neck: Normal Inspection Respiratory/Chest: No Respiratory Distress Extremities: Other (Mild edema to the right knee. Pain upon palpation to the medial knee. Ligaments appear stable. Good sensation and pulses distally.) Course - Vital Signs Last Recorded V/S: Last Vital Signs Temp 98.1 F 03/29/17 18:16 Pulse 99 03/29/17 18:16 Resp 20 03/29/17 18:16 BP 146/78 H 03/29/17 18:16 Pulse Ox 97 03/29/17 18:16 - Orders/Labs/Meds Orders: Active Orders 24 hr Category Date Time Status Knee Min 4V Rt [CR] Stat Exams 03/29/17 18:23 Taken - Re-Assessments/Exams Free Text/Narrative Re-Assessment/Exam: 03/29/17 18:59 I ordered an x-ray of her knee and it shows nothing acute. Departure - Departure Time of Disposition: 19:10 Disposition: Home, Self-Care 01 Condition: Good Clinical Impression: Sprain of right knee Qualifiers: Encounter type: initial encounter Involved ligament of knee: unspecified ligament Qualified Code(s): S83.91XA - Sprain of unspecified site of right knee , initial encounter - Discharge Information Prescriptions: Hydrocodone/Acetaminophen [Hydrocodon-Acetaminophen 5-325] 1 - 2 each PO Q6HR PRN #20 tablet PRN Reason: Pain Referrals: PCP,None [Primary Care Provider] - Marciano Aldrich MD [Physician] - 1 Week Forms: ED Department Discharge, ED Return to Work/School Form Additional Instructions: Ice your knee a couple times per day. Wear the knee immobilizer for comfort. Take the hydrocodone as needed for pain. Follow up with Dr Aldrich in 1 to 2 weeks if you are not better. - My Orders Last 24 Hours: My Active Orders 03/29/17 18:23 Knee Min 4V Rt [CR] Stat - Assessment/Plan Last 24 Hours: My Active Orders 03/29/17 18:23 Knee Min 4V Rt [CR] Stat
--- NOTE | 2017-03-30 10:40 | CR ---
Right knee: Four views of the right knee were obtained. Comparison: No previous study. Mild medial joint space narrowing is seen. Lateral joint space is preserved. No joint effusion is seen. No acute fracture or other bony abnormality is seen. Impression: 1. Mild medial joint space narrowing. 2. No additional abnormality is identified on right knee exam. Diagnostic code #2
== END 2017-03-29 19:25 | disposition home or self-care (01) ==
LOC: JD.ED 18:07
DX: S83.91XA Sprain of unspecified site of right knee, initial encounter (principal); F17.210 Nicotine dependence, cigarettes, uncomplicated; Z88.0 Allergy status to penicillin; Z88.1 Allergy status to other antibiotic agents; Z88.2 Allergy status to sulfonamides; Z88.8 Allergy status to other drugs, medicaments and biological substances; X58.XXXA Exposure to other specified factors, initial encounter
CPT/HCPCS: 73564-26-RT; 73564-RT; 99283; 99284

== ENCOUNTER 2017-12-20 20:27 | Emergency (ER) | payer SELFPAY ==
[2017-12-20 20:49] VITALS: BP 143/85
[2017-12-20] MEDS ORDERED: LORazepam 2 MG/ML SDV IVPUSH ONE (20:58)
[2017-12-20] MEDS ORDERED: Dextrose 5%-Lactated Ringers 1,000 ML IV SCH (21:00)
[2017-12-20] MEDS ORDERED: Metoclopramide 10 MG/2 ML SDV IVPUSH ONE (21:03)
[2017-12-20] MEDS ORDERED: diphenhydrAMINE 50 MG/ML SDV IVPUSH ONE (21:03)
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
== END 2017-12-20 23:10 | disposition home or self-care (01) ==
LOC: JD.ED 20:27
DX: F41.0 Panic disorder [episodic paroxysmal anxiety] (principal); F43.9 Reaction to severe stress, unspecified; Z88.1 Allergy status to other antibiotic agents; Z88.8 Allergy status to other drugs, medicaments and biological substances; Z88.2 Allergy status to sulfonamides
CPT/HCPCS: 36415; 80053; 83735; 84484; 85007; 85027; 86140; 93005; 96361; 96374; 96375; 99284; J1200; J2060; J2765; J7042; 93010

== ENCOUNTER 2018-06-17 19:09 | Emergency (ER) | payer SELFPAY ==
[2018-06-17 19:34] VITALS: BP 129/84
--- NOTE | 2018-06-17 20:32 | EDM.PDOC ---
ED HPI GENERAL MEDICAL PROBLEM - General Chief Complaint: Lower Extremity Injury/Pain Stated Complaint: POSSIBLE RIGHT PINKY TOE BROKEN&INFECTED FINGER Time Seen by Provider: 06/17/18 19:35 Source of Information: Reports: Patient History Limitations: Reports: No Limitations - History of Present Illness INITIAL COMMENTS - FREE TEXT/NARRATIVE: 37-year-old female presents to the ER with complains of right pinky toe pain. She states that yesterday while walking outside she slipped on ice landing on her right foot. She also complains of right index finger swelling and redness and pain for the past 2 days. She denies any fever or chills. She denies any neck or back pain. She reports that she has been soaking her finger and putting alcohol on it but has had little to no relief. She reports that she's been taking ibuprofen for her foot. She is here concerned that she may have broken her toe. Patient reports she does not have a PCP. Onset Date: 06/16/18 Onset Time: 09:00 Duration: Getting Worse Location: Reports: Lower Extremity, Right, Other (right index finger) Quality: Reports: Ache Severity: Mild Improves with: Reports: None Worsens with: Reports: Movement Associated Symptoms: Denies: Fever/Chills Right Toe-Little Pain Score (Numeric/FACES): 5 - Related Data Allergies Allergy/AdvReac Type Severity Reaction Status Date / Time amoxicillin Allergy Severe Anaphylactic Verified 12/20/17 20:49 Shock cefaclor [From Ceclor] Allergy Hives Verified 12/20/17 20:49 Penicillins Allergy Hives Verified 12/20/17 20:49 prochlorperazine Allergy Hives Verified 12/20/17 20:49 [From Compazine] Sulfa (Sulfonamide Allergy Hives Verified 12/20/17 20:49 Antibiotics) Home Meds: Home Meds Cephalexin [Keflex] 500 mg PO QID #20 capsule 06/17/18 [Rx] Past Medical History Respiratory History: Reports: Asthma Other Respiratory History: mild exercise induced 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: Endocrine/Metabolic History: Reports: Diabetes, Gestational, Obesity/BMI 30+ - Past Surgical History HEENT Surgical History: Reports: Oral Surgery Social & Family History - Family History Family Medical History: Noncontributory - Tobacco Use Smoking Status *Q: Current Every Day Smoker Years of Tobacco use: 16 Packs/Tins Daily: 1 - Caffeine Use Caffeine Use: Reports: Coffee - Recreational Drug Use Recreational Drug Use: No - Living Situation & Occupation Living situation: Reports: Occupation: Employed Review of Systems - Review of Systems Review Of Systems: See Below Constitutional: Denies: Chills, Fever Eyes: Reports: No Symptoms Ears: Reports: No Symptoms Nose: Reports: No Symptoms Mouth/Throat: Reports: No Symptoms Respiratory: Reports: No Symptoms Cardiovascular: Reports: No Symptoms GI/Abdominal: Reports: No Symptoms Genitourinary: Reports: No Symptoms Musculoskeletal: Reports: Foot Pain, Other (Right index finger tip erythematous and warm to touch.) Skin: Reports: Other (Right pinky toe contusion) Neurological: Reports: No Symptoms. Denies: Headache, Numbness Psychiatric: Reports: No Symptoms ED EXAM, GENERAL - Physical Exam Exam: See Below Exam Limited By: No Limitations General Appearance: Alert, WD/WN, No Apparent Distress Neck: Normal Inspection, Supple, Non-Tender, Full Range of Motion Respiratory/Chest: No Respiratory Distress, Lungs Clear, Normal Breath Sounds, No Accessory Muscle Use, Chest Non-Tender Cardiovascular: Normal Peripheral Pulses, Regular Rate, Rhythm, No Edema, No Gallop, No JVD, No Murmur, No Rub Extremities: Normal Inspection, Normal Range of Motion, No Pedal Edema (Right pinky toe moderate contusion noted decreased range of motion due to pain, neurovascularly intact. Right index finger bed is red and warm to touch minimal swelling.), Normal Capillary Refill Neurological: Alert, Oriented, CN II-XII Intact, Normal Cognition, Normal Gait, Normal Reflexes, No Motor/Sensory Deficits Skin Exam: Warm, Dry, Intact, Normal Color, No Rash Lymphatic: No Adenopathy ED TRAUMA EXTREMITY PROCEDURES - I&D Skin Prep: Chlorhexidine (Hibiciens) Local Anesthesia: Lidocaine: 0.5% Plain Local Anesthetic Volume: 1cc Area Incised With: 11 Blade Drainage: Purulent, Small Amount Probed to Break Up Loculations: No Progress/Comments: Right index fingertip, I&D performed moderate amount of exudate expelled patient tolerated procedure well. I covered the wound with 4 x 4 gauze. Course - Vital Signs Last Recorded V/S: Last Vital Signs Temp 98.4 F 06/17/18 19:31 Pulse 79 06/17/18 19:31 Resp 18 06/17/18 19:31 BP 129/84 06/17/18 19:31 Pulse Ox 99 06/17/18 19:31 - Orders/Labs/Meds Orders: Active Orders 24 hr Category Date Time Status Foot 2V Rt [CR] Stat Exams 06/17/18 19:45 Taken Departure - Departure Time of Disposition: 20:35 Disposition: Home, Self-Care 01 Clinical Impression: Paronychia of finger Sprain of toe, fifth, right Qualifiers: Encounter type: initial encounter Qualified Code(s): S93.504A - Unspecified sprain of right lesser toe(s), initial encounter - Discharge Information *PRESCRIPTION DRUG MONITORING PROGRAM REVIEWED*: Not Applicable *COPY OF PRESCRIPTION DRUG MONITORING REPORT IN PATIENT PENG: Not Applicable Prescriptions: Cephalexin [Keflex] 500 mg PO QID #20 capsule Instructions: Paronychia, Cryotherapy Referrals: PCP,None [Primary Care Provider] - Forms: ED Department Discharge, ED Return to Work/School Form Additional Instructions: You were seen for right foot pain your x-ray revealed no fracture or dislocation. You received treatment for your paronychia of your right index finger. Continue to clean with soap and water. He may feels a prescription for Keflex if the symptoms do not improve. Take medication to resolve gone. Follow- up with your PCP as needed. Return to the emergency room for any new or acutely worsening symptoms. - My Orders Last 24 Hours: My Active Orders 06/17/18 19:45 Foot 2V Rt [CR] Stat - Assessment/Plan Last 24 Hours: My Active Orders 06/17/18 19:45 Foot 2V Rt [CR] Stat
--- NOTE | 2018-06-18 06:15 | CR ---
Right foot: Two views of the right foot were obtained. Comparison: No previous foot exam. Small plantar spur is seen. Larger spur is noted posteriorly at the attachment of the Achilles tendon to the calcaneus. Lucency is identified within the base of the proximal phalanx of the fifth toe suspicious for fracture. Impression: 1. Findings suspicious for fracture involving the base of the proximal phalanx of the fifth toe. 2. Calcaneal spurs. Diagnostic code #3
== END 2018-06-17 20:46 | disposition home or self-care (01) ==
LOC: JD.ED 19:09
DX: S93.504A Unspecified sprain of right lesser toe(s), initial encounter (principal); L03.011 Cellulitis of right finger; F17.210 Nicotine dependence, cigarettes, uncomplicated; Z88.0 Allergy status to penicillin; Z88.1 Allergy status to other antibiotic agents; Z88.2 Allergy status to sulfonamides; Z88.8 Allergy status to other drugs, medicaments and biological substances; W00.0XXA Fall on same level due to ice and snow, initial encounter
CPT/HCPCS: 10060; 73620-26-RT; 73620-RT; 99283; 99283-25

== ENCOUNTER 2020-04-30 14:09 | Emergency (ER) | payer MEDICAID ==
[2020-04-30 14:28] VITALS: BP 152/86; PULSE 103
--- NOTE | 2020-04-30 14:58 | EDM.PDOC ---
ED HPI GENERAL MEDICAL PROBLEM - General Chief Complaint: Behavioral/Psych Stated Complaint: BEHAVIORAL ISSUES Time Seen by Provider: 04/30/20 14:57 - History of Present Illness INITIAL COMMENTS - FREE TEXT/NARRATIVE: 39-year-old female presents the emergency room with anxiety issues. Patient has had worsening anxiety over the last 4 to 5 days. However this is preceded by much milder symptoms for many weeks. The patient was treated with Zoloft in the past but had side effects and did not continue this. The Zoloft was a couple years ago. The patient has increasing stresses with her and her children. Patient is not sleeping well at night she is having vivid dreams. If she wakes up shortly after falling asleep she cannot go back to sleep because of too many thoughts going through her head about the stressors she has going on. The patient has no intent of hurting herself or anybody else this question was asked several times. Patient denies any possibility of as she has an IUD. The patient does not drink alcohol. She smokes marijuana rarely. - Related Data Allergies Allergy/AdvReac Type Severity Reaction Status Date / Time amoxicillin Allergy Severe Anaphylactic Verified 04/30/20 14:28 Shock cefaclor [From Ceclor] Allergy Severe Hives Verified 04/30/20 14:28 Penicillins Allergy Severe Hives Verified 04/30/20 14:28 prochlorperazine Allergy Severe Hives Verified 04/30/20 14:28 [From Compazine] Sulfa (Sulfonamide Allergy Severe Hives Verified 04/30/20 14:28 Antibiotics) Home Meds: Home Meds LORazepam [Ativan] 1 mg PO BID PRN #14 tab 04/30/20 [Rx] Past Medical History Respiratory History: Reports: Asthma Other Respiratory History: mild exercise induced 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 Psychiatric History: Reports: Depression Endocrine/Metabolic History: Reports: Diabetes, Gestational, Obesity/BMI 30+ - Infectious Disease History Infectious Disease History: Reports: Chicken Pox - Past Surgical History HEENT Surgical History: Reports: Oral Surgery Social & Family History - Family History Family Medical History: No Pertinent Family History - Tobacco Use Tobacco Use Status *Q: Current Every Day Tobacco User Years of Tobacco use: 24 Packs/Tins Daily: 1 - Caffeine Use Caffeine Use: Reports: Coffee, Soda, Tea - Recreational Drug Use Recreational Drug Use: Yes Drug Use in Last 12 Months: Yes Recreational Drug Type: Reports: Marijuana/Hashish Recreational Drug Use Frequency: Monthly - Living Situation & Occupation Living situation: Reports: Occupation: Employed ED ROS GENERAL - Review of Systems Review Of Systems: See Below Constitutional: Reports: Fatigue HEENT: Reports: No Symptoms Respiratory: Reports: No Symptoms Cardiovascular: Reports: No Symptoms Endocrine: Reports: Fatigue GI/Abdominal: Reports: No Symptoms : Reports: No Symptoms Musculoskeletal: Reports: No Symptoms Skin: Reports: No Symptoms Neurological: Reports: No Symptoms Psychiatric: Reports: Anxiety, Depression (Possible) Hematologic/Lymphatic: Reports: No Symptoms Immunologic: Reports: No Symptoms ED EXAM, GENERAL - Physical Exam Exam: See Below Exam Limited By: No Limitations General Appearance: Alert, No Apparent Distress, Other (Patient answers questions appropriately and she is very cooperative) Eye Exam: Bilateral Eye: Normal Inspection, PERRL Ears: Normal External Exam, Normal Canal, Hearing Grossly Normal, Normal TMs Nose: Normal Inspection, Normal Mucosa, No Blood Throat/Mouth: Normal Inspection, Normal Lips, Normal Teeth, Normal Gums, Normal Oropharynx, Normal Voice, No Airway Compromise Head: Atraumatic, Normocephalic Neck: Other (Patient may have some mild thyromegaly noticed on the right side but not on the left. Because of her body habitus this is hard to be certain of). No: Lymphadenopathy (L), Lymphadenopathy (R) Respiratory/Chest: No Respiratory Distress, Lungs Clear, Normal Breath Sounds Cardiovascular: Regular Rate, Rhythm, No Edema, No Murmur GI/Abdominal: Normal Bowel Sounds, Soft, Non-Tender, Other (Obese) Back Exam: Normal Inspection. No: CVA Tenderness (L), CVA Tenderness (R) Extremities: Normal Inspection, No Pedal Edema Neurological: Alert, Oriented, Normal Cognition Psychiatric: Normal Affect, Normal Mood Skin Exam: Warm, Dry, Intact Lymphatic: No Adenopathy Course - Vital Signs Last Recorded V/S: Last Vital Signs Temp 36.8 C 04/30/20 14:23 Pulse 103 H 04/30/20 14:23 Resp 18 04/30/20 14:23 BP 152/86 H 04/30/20 14:23 Pulse Ox 98 04/30/20 14:23 - Orders/Labs/Meds Labs: Laboratory Tests 04/30/20 04/30/2004/30/21 Range/Units 15:23 15:43 16:16 WBC 6.80 (3.98-10.04) K/mm3 RBC 4.85 (3.98-5.22) M/mm3 Hgb 14.3 (11.2-15.7) gm/dl Hct 44.2 (34.1-44.9) % MCV 91.1 D (79.4-94.8) fl MCH 29.5 (25.6-32.2) pg MCHC 32.4 (32.2-35.5) g/dl RDW Std Deviation 46.8 H (36.4-46.3) fL Plt Count 313 (182-369) K/mm3 MPV 9.1 L (9.4-12.3) fl Neut % (Auto) 63.5 (34.0-71.1) % Lymph % (Auto) 28.8 (19.3-51.7) % [place] % (Auto) 5.3 (4.7-12.5) % Eos % (Auto) 2.1 (0.7-5.8) Baso % (Auto) 0.3 (0.1-1.2) % Neut # (Auto) 4.32 (1.56-6.13) K/mm3 Lymph # (Auto) 1.96 (1.18-3.74) K/mm3 [place] # (Auto) 0.36 (0.24-0.36) K/mm3 Eos # (Auto) 0.14 (0.04-0.36) K/mm3 Baso # (Auto) 0.02 (0.01-0.08) K/mm3 Sodium 144 (136-145) mEq/L Potassium 3.7 (3.5-5.1) mEq/L Chloride 107 (98-107) mEq/L Carbon Dioxide 27 (21-32) mEq/L Anion Gap 13.7 (5-15) BUN 6 L (7-18) mg/dL Creatinine 0.7 (0.55-1.02) mg/dL Est Cr Clr Drug Dosing 93.17 mL/min Estimated GFR (MDRD) > 60 (>60) mL/min BUN/Creatinine Ratio 8.6 L (14-18) Glucose 145 H (74-106) mg/dL Calcium 9.1 (8.5-10.1) mg/dL Total Bilirubin 0.3 (0.2-1.0) mg/dL AST 15 (15-37) U/L ALT 35 (14-59) U/L Alkaline Phosphatase 93 (46-116) U/L Total Protein 6.7 (6.4-8.2) g/dl Albumin 3.3 L (3.4-5.0) g/dl Globulin 3.4 gm/dL Albumin/Globulin Ratio 1.0 (1-2) TSH 3rd Generation 1.084 (0.358-3.74) uIU/mL Urine Color Yellow (Yellow) Urine Appearance Slt cloudy H (Clear) Urine pH 7.0 (5.0-8.0) Ur Specific [place] 1.025 (1.005-1.030) Urine Protein Trace H (Negative) Urine Glucose (UA) Negative (Negative) Urine Ketones Negative (Negative) Urine Occult Blood 2+ H (Negative) Urine Nitrite Negative (Negative) Urine Bilirubin Negative (Negative) Urine Urobilinogen 2.0 H (0.2-1.0) Ur Leukocyte Esterase Negative (Negative) Urine RBC 5-10 H (0-5) /hpf Urine WBC 0-5 (0-5) /hpf Ur Squamous Epith Cells 5-10 H (0-5) /hpf Urine Bacteria Moderate H (FEW) /hpf Urine Mucus Few (FEW) /hpf - Re-Assessments/Exams Free Text/Narrative Re-Assessment/Exam: 04/30/20 16:55 Laboratory evaluation is not helpful. Her thyroid is normal. We will treat for anxiety and she is establishing with a healthcare provider on Sunday. Departure - Departure Time of Disposition: 16:59 Disposition: Home, Self-Care Clinical Impression: Anxiety - Discharge Information Referrals: PCP,None [Primary Care Provider] - Forms: ED Department Discharge Additional Instructions: Return to the emergency room with any questions problems or worsening symptoms. Follow-up in the clinic on Sunday as scheduled. Have your new healthcare provider watch your neck in the perceived swelling on the right side and follow this. You have been given lorazepam, or Ativan, take 1 only as needed twice daily. However it is preferred if you only use it the evening so you get a good night sleep and then see how you do. Sepsis Event Note (ED) - Evaluation Sepsis Screening Result: No Definite Risk - Focused Exam Vital Signs: Vital Signs Temp Pulse Resp BP Pulse Ox 04/30/20 14:23 36.8 C 103 H 18 152/86 H 98
== END 2020-04-30 17:25 | disposition home or self-care (01) ==
LOC: JD.ED 14:09
DX: F41.9 Anxiety disorder, unspecified (principal); E66.9 Obesity, unspecified; Z72.0 Tobacco use; Z88.1 Allergy status to other antibiotic agents; Z88.0 Allergy status to penicillin; Z88.2 Allergy status to sulfonamides; Z68.42 Body mass index [BMI] 45.0-49.9, adult
CPT/HCPCS: 36415; 80053; 81001; 84443; 85025; 99283

== ENCOUNTER 2020-11-21 12:21 | Emergency (ER) | payer MEDICAID ==
[2020-11-21 12:58] VITALS: BP 145/75; PULSE 100
--- NOTE | 2020-11-21 13:31 | EDM.PDOC ---
ED HPI GENERAL MEDICAL PROBLEM - General Chief Complaint: Respiratory Problem Stated Complaint: COVID SX Time Seen by Provider: 11/21/20 12:50 Source of Information: Reports: Patient History Limitations: Reports: No Limitations - History of Present Illness INITIAL COMMENTS - FREE TEXT/NARRATIVE: 40-year-old female presents the emergency department with a 2-day history of Covid type of symptoms. Patient states she developed fatigue, generalized body aches, headache, nausea, and vomiting proximately 2 days ago. Patient's daughter tested positive for Covid 3 days ago. Patient's appetite has been good. And she has not lost her taste and smell. O2 saturations at the time of my assessment were 98% on room air. Patient is a pack-a-day smoker for the past 20 years. Chest Pain Score (Numeric/FACES): 5 - Related Data Allergies Allergy/AdvReac Type Severity Reaction Status Date / Time amoxicillin Allergy Severe Anaphylactic Verified 04/30/20 14:28 Shock cefaclor [From Ceclor] Allergy Severe Hives Verified 04/30/20 14:28 Penicillins Allergy Severe Hives Verified 04/30/20 14:28 prochlorperazine Allergy Severe Hives Verified 04/30/20 14:28 [From Compazine] Sulfa (Sulfonamide Allergy Severe Hives Verified 04/30/20 14:28 Antibiotics) Home Meds: Home Meds LORazepam [Ativan] 1 mg PO BID PRN #14 tab 04/30/20 [Rx] Benzonatate [Tessalon Perle] 100 mg PO TID PRN #12 capsule 11/21/20 [Rx] Ondansetron [Zofran ODT] 4 mg PO Q6H PRN #12 tab.dis 11/21/20 [Rx] Past Medical History Respiratory History: Reports: Asthma Other Respiratory History: mild exercise induced 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 Psychiatric History: Reports: Depression Endocrine/Metabolic History: Reports: Diabetes, Gestational, Obesity/BMI 30+ - Infectious Disease History Infectious Disease History: Reports: Chicken Pox - Past Surgical History HEENT Surgical History: Reports: Oral Surgery Social & Family History - Family History Family Medical History: No Pertinent Family History - Tobacco Use Tobacco Use Status *Q: Current Every Day Tobacco User Years of Tobacco use: 20 Packs/Tins Daily: 1 - Caffeine Use Caffeine Use: Reports: Coffee, Soda - Recreational Drug Use Recreational Drug Use: No - Living Situation & Occupation Living situation: Reports: Occupation: Employed ED ROS GENERAL - Review of Systems Review Of Systems: Comprehensive ROS is negative, except as noted in HPI. ED EXAM, GENERAL - Physical Exam Exam: See Below Exam Limited By: No Limitations General Appearance: Alert, WD/WN, No Apparent Distress Ears: Normal External Exam, Hearing Grossly Normal Nose: Normal Inspection Throat/Mouth: Normal Inspection, Normal Lips, Normal Voice, No Airway Compromise Head: Atraumatic Neck: Normal Inspection, Supple Respiratory/Chest: No Respiratory Distress, Lungs Clear, Normal Breath Sounds, No Accessory Muscle Use, Chest Non-Tender Cardiovascular: Normal Peripheral Pulses, Regular Rate, Rhythm, No Edema, No Murmur Peripheral Pulses: 2+: Radial (L), Radial (R) GI/Abdominal: Normal Bowel Sounds, Soft, Non-Tender, No Distention (Female) Exam: Deferred Rectal (Female) Exam: Deferred Back Exam: Normal Inspection Extremities: Normal Inspection, Normal Range of Motion, Non-Tender, No Pedal Edema, Normal Capillary Refill Neurological: Alert, Oriented, Normal Cognition Psychiatric: Normal Affect, Normal Mood Skin Exam: Warm, Dry, Intact, Normal Color, No Rash Lymphatic: No Adenopathy Course - Vital Signs Text/Narrative:: As stated above 4-year-old female with Covid type symptoms. Her daughter was diagnosed with Covid 3 days ago. Upon assessment physical exam is completely unremarkable. Lungs are clear to all lee. We will order a Covid swab on the patient as well as a portable chest x-ray. Last Recorded V/S: Last Vital Signs Temp 97.7 F 11/21/20 12:45 Pulse 100 11/21/20 12:45 Resp 18 11/21/20 12:45 BP 145/75 H 11/21/20 12:45 Pulse Ox 100 11/21/20 12:45 - Orders/Labs/Meds Labs: Laboratory Tests 11/21/20 Range/Units 12:40 SARS-CoV-2 RNA (ERMA) Negative (NEGATIVE) - Re-Assessments/Exams Free Text/Narrative Re-Assessment/Exam: 11/21/20 14:38 Radiologist impression portable view of the chest: 1. Nodule in the left upper chest most likely representing a granuloma. Noncontrast chest CT would need to confirm. 2. Nothing acute is otherwise seen on portable chest x-ray. I have ordered for a CT scan without contrast to further evaluate for nodule noted on chest x-ray. 11/21/20 15:[address] of the chest without contrast: 1. Nodule seen on chest x-ray correlates to degenerative spurring within the first costochondral junction. 2. Fatty infiltration within the liver. 3. Other findings believed to be incidental. Nothing acute is appreciated. Patient will be discharged home. I will send a prescription for Zofran 4 mg ODT to be taken every 6 hours as needed. I will send a prescription for Tessalon Perles 100 mg to be taken 3 times daily as needed for cough. Departure - Departure Time of Disposition: 15:33 Disposition: Home, Self-Care 01 Condition: Good Clinical Impression: Viral infection - Discharge Information Prescriptions: Benzonatate [Tessalon Perle] 100 mg PO TID PRN #12 capsule PRN Reason: Cough Ondansetron [Zofran ODT] 4 mg PO Q6H PRN #12 tab.dis PRN Reason: Nausea/Vomiting Referrals: Maya Sahu CROSS TIE TRAM LOADER [Primary Care Provider] - Forms: ED Department Discharge Additional Instructions: You were seen in the emergency department today with complaints of Covid type symptoms. Covid swab was completed and this was negative however your symptoms do correlate with Covid as your daughter did test positive. I would quarantine for 10 days time. Chest x-ray did show a nodule on your lung however CT scan was completed and this just appears to be of bone spur within your rib area. I have sent prescriptions for Zofran, nausea medication be taken every 6 hours as needed for nausea. I have also sent a prescription for Tessalon Perles, this medication is used for coughing, it can be taken 3 times daily as needed. Go home and rest and drink plenty of fluids. May take Tylenol or ibuprofen for headache and generalized body aches. Sepsis Event Note (ED) - Evaluation Sepsis Screening Result: No Definite Risk - Focused Exam Vital Signs: Vital Signs Temp Pulse Resp BP Pulse Ox 11/21/20 12:45 97.7 F 100 18 145/75 H 100
--- NOTE | 2020-11-21 13:57 | CR ---
Chest: Portable view of the chest was obtained. Comparison: No prior chest imaging is available. Heart size and mediastinum are normal. Nodule is noted within the left upper lung most likely representing granuloma. No definite acute parenchymal change is seen within either lung. No acute osseous abnormality is appreciated. Impression: 1. Nodule within the left upper chest most likely representing granuloma. Noncontrast chest CT would be needed to confirm. 2. Nothing acute is otherwise seen on portable chest x-ray. Diagnostic code #3
--- NOTE | 2020-11-21 15:09 | CT ---
CT chest Technique: Multiple axial sections through the chest were obtained. Intravenous contrast was not utilized. Reconstructed coronal and sagittal images were obtained. Comparison: No previous chest CT is available, prior chest x-ray performed earlier on the same date (1:18 PM) is available. Findings: Lungs are clear. Nodule that was noted on prior chest x-ray is not appreciated within the lung parenchyma and likely represents a prominent osteophyte off the first costochondral junction. Lungs show no acute parenchymal change. Thoracic aorta shows no aneurysm. Mediastinum shows no adenopathy. No pericardial thickening is seen. There is mild fatty infiltration noted within the liver. Bone window settings were reviewed which show mild scattered end plate spurring within the spine with several levels of slight posterior spurring. No acute osseous finding is appreciated. Impression: 1. Nodule seen on chest x-ray correlates to degenerative spurring within the first costochondral junction. 2. Fatty infiltration within the liver. 3. Other findings believed to be incidental as noted above. Nothing acute is appreciated. Diagnostic code #2
== END 2020-11-21 15:46 | disposition home or self-care (01) ==
LOC: JD.ED 12:21
DX: B34.9 Viral infection, unspecified (principal); E66.9 Obesity, unspecified; Z68.41 Body mass index [BMI] 40.0-44.9, adult; Z72.0 Tobacco use; Z88.0 Allergy status to penicillin; Z88.1 Allergy status to other antibiotic agents; Z88.8 Allergy status to other drugs, medicaments and biological substances; Z88.2 Allergy status to sulfonamides; Z20.822 Contact with and (suspected) exposure to COVID-19
CPT/HCPCS: 71045; 71045-26; 71250; 71250-26; 99283; 99284-25; U0002

== ENCOUNTER 2020-12-14 18:59 | Emergency (ER) | payer MEDICAID ==
[2020-12-14 19:13] VITALS: BP 151/89; PULSE 90
--- NOTE | 2020-12-14 19:25 | EDM.PDOC ---
ED HPI GENERAL MEDICAL PROBLEM - General Chief Complaint: Chest Pain Stated Complaint: CHEST PAIN/ABNORMAL BREATHING Time Seen by Provider: 12/14/20 19:24 Source of Information: Reports: Patient History Limitations: Reports: No Limitations - History of Present Illness INITIAL COMMENTS - FREE TEXT/NARRATIVE: Patient is a 40-year-old female who while at work approximately 2 hours ago started developing some sharp type chest pains with some chest tightness which she rates as 4 out of 10 intensity and feeling slightly short of breath at rest. There is no change in this at exertion. Patient feels somewhat tremulous all over. She has had similar symptoms in the past with anxiety attack. Patient has no history of being a cigarette smoker or no history of coronary artery di sease. She denies any bloody or tarry stools or swelling to her ankles. She denies any fever chills or coughing. She has had no Covid symptoms. Patient also has a history of asthma attacks but does not feel that this is due to asthma. She has taken nothing for current symptoms. Onset: Today Duration: Hour(s): (2), Improving Location: Reports: Chest Quality: Reports: Pressure, Sharp Severity: Moderate Improves with: Reports: None Worsens with: Reports: None Associated Symptoms: Reports: Chest Pain, Shortness of Breath. Denies: Cough, Diaphoresis, Fever/Chills, Malaise, Nausea/Vomiting Chest Pain Score (Numeric/FACES): 5 - Related Data Allergies Allergy/AdvReac Type Severity Reaction Status Date / Time amoxicillin Allergy Severe Anaphylactic Verified 12/14/20 19:13 Shock cefaclor [From Ceclor] Allergy Severe Hives Verified 12/14/20 19:13 Penicillins Allergy Severe Hives Verified 12/14/20 19:13 prochlorperazine Allergy Severe Hives Verified 12/14/20 19:13 [From Compazine] Sulfa (Sulfonamide Allergy Severe Hives Verified 12/14/20 19:13 Antibiotics) Home Meds: Home Meds LORazepam [Ativan] 1 mg PO BID PRN #14 tab 04/30/20 [Rx] Benzonatate [Tessalon Perle] 100 mg PO TID PRN #12 capsule 11/21/20 [Rx] Ondansetron [Zofran ODT] 4 mg PO Q6H PRN #12 tab.dis 11/21/20 [Rx] Past Medical History Respiratory History: Reports: Asthma Other Respiratory History: mild exercise induced 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 Constitutional: Reports: No Symptoms Respiratory: Reports: No Symptoms, Pleuritic Chest Pain Cardiovascular: Reports: Chest Pain GI/Abdominal: Reports: No Symptoms ED EXAM, GENERAL - Physical Exam Exam: See Below Exam Limited By: No Limitations General Appearance: Alert, No Apparent Distress Head: Atraumatic, Normocephalic Neck: Normal Inspection Respiratory/Chest: No Respiratory Distress, Lungs Clear, Normal Breath Sounds, No Accessory Muscle Use, Chest Non-Tender Cardiovascular: Normal Peripheral Pulses, Regular Rate, Rhythm, No Edema GI/Abdominal: Normal Bowel Sounds, Non-Tender Back Exam: Normal Inspection Extremities: Normal Inspection, No Pedal Edema Neurological: Alert Psychiatric: Normal Affect Skin Exam: Warm, Dry Lymphatic: No Adenopathy #1 Interpretation Rhythm: NSR P-Wave: Present QRS: Normal ST-T: Normal QT: Normal EKG Interpretation Comments: Normal EKG. Course - Vital Signs Text/Narrative:: Patient's 2 troponins were negative as well as her D-dimer and her Covid. She is feeling much better at this time and feels well enough to go home. Last Recorded V/S: Last Vital Signs Temp 98.1 F 12/14/20 19:06 Pulse 90 12/14/20 19:06 Resp 20 12/14/20 19:06 BP 151/89 H 12/14/20 19:06 Pulse Ox 98 12/14/20 19:06 - Orders/Labs/Meds Labs: Laboratory Tests 12/14/20 12/14/20 12/14/20 Range/Units 19:18 19:18 19:18 WBC 6.59 (3.98-10.04) K/mm3 RBC 4.83 (3.98-5.22) M/mm3 Hgb 14.6 (11.2-15.7) gm/dl Hct 43.7 (34.1-44.9) % MCV 90.5 (79.4-94.8) fl MCH 30.2 (25.6-32.2) pg MCHC 33.4 (32.2-35.5) g/dl RDW Std Deviation 46.9 H (36.4-46.3) fL Plt Count 296 (182-369) K/mm3 MPV 9.3 L (9.4-12.3) fl Neutrophils % (Manual) 68 H (40-60) % Band Neutrophils % 0 (0-10) % Lymphocytes % (Manual) 31 (20-40) % Atypical Lymphs % 0 % Monocytes % (Manual) 0 L (2-10) % Eosinophils % (Manual) 1 (0.7-5.8) % Basophils % (Manual) 0 L (0.1-1.2) Platelet Estimate Adequate RBC Morph Comment Normal D-Dimer, Quantitative 0.23 (0.19-0.50) mg/L Sodium 140 (136-145) mEq/L Potassium 3.7 (3.5-5.1) mEq/L Chloride 105 (98-107) mEq/L Carbon Dioxide 26 (21-32) mEq/L Anion Gap 12.7 (5-15) BUN 8 (7-18) mg/dL Creatinine 0.8 (0.55-1.02) mg/dL Est Cr Clr Drug Dosing 80.72 mL/min Estimated GFR (MDRD) > 60 (>60) mL/min BUN/Creatinine Ratio 10.0 L (14-18) Glucose 101 H (70-99) mg/dL Calcium 8.7 (8.5-10.1) mg/dL Total Bilirubin 0.4 (0.2-1.0) mg/dL AST 26 (15-37) U/L ALT 32 (14-59) U/L Alkaline Phosphatase 94 (46-116) U/L Troponin I < 0.017 (0.00-0.056) ng/mL Total Protein 7.0 (6.4-8.2) g/dl Albumin 3.6 (3.4-5.0) g/dl Globulin 3.4 gm/dL Albumin/Globulin Ratio 1.1 (1-2) SARS-CoV-2 RNA (ERMA) (NEGATIVE) 12/14/20 12/14/20 Range/Units 19:20 21:54 WBC (3.98-10.04) K/mm3 RBC (3.98-5.22) M/mm3 Hgb (11.2-15.7) gm/dl Hct (34.1-44.9) % MCV (79.4-94.8) fl MCH (25.6-32.2) pg MCHC (32.2-35.5) g/dl RDW Std Deviation (36.4-46.3) fL Plt Count (182-369) K/mm3 MPV (9.4-12.3) fl Neutrophils % (Manual) (40-60) % Band Neutrophils % (0-10) % Lymphocytes % (Manual) (20-40) % Atypical Lymphs % % Monocytes % (Manual) (2-10) % Eosinophils % (Manual) (0.7-5.8) % Basophils % (Manual) (0.1-1.2) Platelet Estimate RBC Morph Comment D-Dimer, Quantitative (0.19-0.50) mg/L Sodium (136-145) mEq/L Potassium (3.5-5.1) mEq/L Chloride (98-107) mEq/L Carbon Dioxide (21-32) mEq/L Anion Gap (5-15) BUN (7-18) mg/dL Creatinine (0.55-1.02) mg/dL Est Cr Clr Drug Dosing mL/min Estimated GFR (MDRD) (>60) mL/min BUN/Creatinine Ratio (14-18) Glucose (70-99) mg/dL Calcium (8.5-10.1) mg/dL Total Bilirubin (0.2-1.0) mg/dL AST (15-37) U/L ALT (14-59) U/L Alkaline Phosphatase (46-116) U/L Troponin I < 0.017 (0.00-0.056) ng/mL Total Protein (6.4-8.2) g/dl Albumin (3.4-5.0) g/dl Globulin gm/dL Albumin/Globulin Ratio (1-2) SARS-CoV-2 RNA (ERMA) Negative (NEGATIVE) Meds: Medications Discontinued Medications Generic Name Dose Route Start Last Admin Trade Name Minerva PRN Reason Stop Dose Admin Lorazepam 1 mg 12/14/20 19:37 12/14/20 19:45 Lorazepam 1 Mg Tab PO 12/14/20 19:38 1 mg ONETIME ONE Administration Departure - Departure Time of Disposition: 22:59 Disposition: Home, Self-Care 01 Condition: Good Clinical Impression: Atypical chest pain Instructions: Nonspecific Chest Pain, Adult Referrals: Maya Sahu HUMAN RESOURCES ASSISTANT MANAGER [Primary Care Provider] - Forms: ED Department Discharge Additional Instructions: Return to emergency department if symptoms are worse or you are having exertional chest pains. Follow-up with PCP if symptoms continue. [id number] Pepcid for the next several days with low-fat diet and small meals only. Sepsis Event Note (ED) - Focused Exam Vital Signs: Vital Signs Temp Pulse Resp BP Pulse Ox 12/14/20 19:06 98.1 F 90 20 151/89 H 98
[2020-12-14] MEDS ORDERED: LORazepam 1 MG Tab PO ONE (19:37)
== END 2020-12-14 23:13 | disposition home or self-care (01) ==
LOC: JD.ED 18:59
DX: R07.89 Other chest pain (principal); J45.909 Unspecified asthma, uncomplicated; E66.9 Obesity, unspecified; Z68.42 Body mass index [BMI] 45.0-49.9, adult; Z88.0 Allergy status to penicillin; Z88.1 Allergy status to other antibiotic agents; Z88.2 Allergy status to sulfonamides; Z88.8 Allergy status to other drugs, medicaments and biological substances; Z79.899 Other long term (current) drug therapy; Z20.822 Contact with and (suspected) exposure to COVID-19
CPT/HCPCS: 36415; 80053; 84484; 85007; 85027; 85379; 87635; 93005; 99285; A9270; 93010; 99284; U0002

== ENCOUNTER 2021-11-16 12:29 | Emergency (ER) | payer MEDICAID ==
[2021-11-16 12:41] VITALS: BP 170/96; PULSE 100
== END 2021-11-16 15:02 | disposition home or self-care (01) ==
LOC: JD.ED 12:29
DX: F41.9 Anxiety disorder, unspecified (principal); F17.210 Nicotine dependence, cigarettes, uncomplicated; E66.9 Obesity, unspecified; Z68.42 Body mass index [BMI] 45.0-49.9, adult; Z88.0 Allergy status to penicillin; Z88.1 Allergy status to other antibiotic agents; Z88.2 Allergy status to sulfonamides; Z88.8 Allergy status to other drugs, medicaments and biological substances; Z79.899 Other long term (current) drug therapy
CPT/HCPCS: 99283

== ENCOUNTER 2022-06-20 15:43 | Emergency (ER) | payer MEDICAID ==
[2022-06-20] MEDS ORDERED: Sodium Chloride 0.9% 1,000 ML IV ONE (16:06)
[2022-06-20] MEDS ORDERED: Sodium Chloride 0.9% 10 ML Syringe FLUSH PRN (16:06)
[2022-06-20] MEDS ORDERED: Levofloxacin/Dextrose 5%-Water 750 MG in Premix Bag 1 BAG IV ONE (17:26)
[2022-06-20] MEDS ORDERED: Sodium Chloride 0.9% 1,000 ML IV STA (18:18)
[2022-06-20 18:48] VITALS: BP 111/79; PULSE 108
== END 2022-06-20 19:45 | disposition home or self-care (01) ==
LOC: JD.ED 15:43
DX: L03.116 Cellulitis of left lower limb (principal); N39.0 Urinary tract infection, site not specified; E11.9 Type 2 diabetes mellitus without complications; J45.909 Unspecified asthma, uncomplicated; E66.9 Obesity, unspecified; Z68.41 Body mass index [BMI] 40.0-44.9, adult; Z88.0 Allergy status to penicillin; Z88.2 Allergy status to sulfonamides; Z88.8 Allergy status to other drugs, medicaments and biological substances
CPT/HCPCS: 36415; 80053; 81001; 83605; 85007; 85027; 85610; 86140; 87040; 87086; 96361; 96365; 99283; J1956; J3490; J7030

== ENCOUNTER 2022-06-26 01:40 | Emergency (ER) | payer MEDICAID ==
[2022-06-26] MEDS ORDERED: Ondansetron 4 MG/2 ML SDV IVPUSH ONE (02:17)
[2022-06-26] MEDS ORDERED: Lactated Ringers 1,000 ML IV ONE (02:17)
[2022-06-26 03:49] VITALS: BP 147/91; PULSE 95
== END 2022-06-26 03:45 | disposition home or self-care (01) ==
LOC: JD.ED 01:40
DX: K52.9 Noninfective gastroenteritis and colitis, unspecified (principal); E66.9 Obesity, unspecified; Z68.41 Body mass index [BMI] 40.0-44.9, adult; Z88.0 Allergy status to penicillin; Z88.1 Allergy status to other antibiotic agents; Z88.2 Allergy status to sulfonamides; Z88.8 Allergy status to other drugs, medicaments and biological substances; Z79.899 Other long term (current) drug therapy; Z72.0 Tobacco use
CPT/HCPCS: 36415; 80053; 83690; 83735; 85025; 93005; 96361; 96374; 99284; J2405; J7120

== ENCOUNTER 2022-09-12 07:04 | Emergency (ER) | payer MEDICAID ==
[2022-09-12] MEDS ORDERED: LORazepam 1 MG Tab PO ONE (08:05)
[2022-09-12 08:24] LABS: BASOPHILS ABSOLUTE AUTO 0.03 K/mm3 (0.01-0.08); BASOPHILS PERCENT AUTO 0.4 % (0.1-1.2); EOSINOPHILS ABSOLUTE AUTO 0.19 K/mm3 (0.04-0.36); EOSINOPHILS PERCENT AUTO 2.3 (0.7-5.8); HEMATOCRIT 45.7 % (34.1-44.9); LYMPHOCYTES ABSOLUTE AUTO 2.14 K/mm3 (1.18-3.74); LYMPHOCYTES PERCENT AUTO 25.9 % (19.3-51.7); MEAN CORPUSCULAR HEMOGLOBIN 29.4 pg (25.6-32.2); MEAN CORPUSCULAR HGB CONC 32.8 g/dl (32.2-35.5); MEAN CORPUSCULAR VOLUME 89.4 fl (79.4-94.8); MEAN PLATELET VOLUME 9.3 fl (9.4-12.3); MONOCYTES ABSOLUTE AUTO 0.61 K/mm3 (0.24-0.36); MONOCYTES PERCENT AUTO 7.4 % (4.7-12.5); PLATELET COUNT,PLT 283 K/mm3 (182-369); RED BLOOD CELL COUNT 5.11 M/mm3 (3.98-5.22); WHITE BLOOD CELL COUNT,WBC 8.27 K/mm3 (3.98-10.04)
[2022-09-12 08:55] LABS: A/G RATIO 0.9 (1-2); ALBUMIN 3.2 g/dl (3.4-5.0); ANION GAP 9.4 (5-15); BILIRUBIN TOTAL 0.3 mg/dL (0.2-1.0); CALCIUM 8.8 mg/dL (8.5-10.1); EST CRCL DRUG DOSING (CG) 65.95 mL/min; POTASSIUM,K 4.4 mEq/L (3.5-5.1); PROTEIN TOTAL,TP 6.9 g/dl (6.4-8.2); TSH 1.194 uIU/mL (0.358-3.74)
[2022-09-12 09:27] LABS: APPEARANCE,URINE CLEAR (Clear); BILIRUBIN,URINE NEGATIVE (Negative); COLOR,URINE YELLOW (Yellow); GLUCOSE,URINE NEGATIVE (Negative); KETONES,URINE NEGATIVE (Negative); LEUKOCYTE ESTERASE,URINE 3+ (Negative); NITRITE,URINE NEGATIVE (Negative); OCCULT BLOOD,URINE 2+ (Negative); PROTEIN,URINE NEGATIVE (Negative); UROBILINOGEN,URINE 0.2 (0.2-1.0)
[2022-09-12 09:46] LABS: BARBITURATE SCREEN,URINE NEGATIVE (CUTOFF=200); BENZODIAZEPINES SCREEN,URINE NEGATIVE (CUTOFF=150); BUPRENORPHINE SCREEN,URINE NEGATIVE (CUTOFF=10); METHADONE SCREEN, URINE NEGATIVE (CUTOFF=200); METHAMPHETAMINES SCREEN, URINE NEGATIVE (CUTOFF=500); OXYCODONE SCREEN,URINE NEGATIVE (CUT0FF=100); PROPOXYPHENE SCREEN,URINE NEGATIVE (CUTOFF=300); THC SCREEN,URINE 20 NG/ML PRESUMPTIVE POSITIVE (CUTOFF=50)
[2022-09-12 09:47] LABS: AMPHETAMINES SCREEN, URINE NEGATIVE (CUTOFF=500)
[2022-09-12 09:57] LABS: RBC,URINE 0-5 /hpf (0-5); SQUAMOUS EPITHELIAL CELLS,UR 0-5 /hpf (0-5); WBC CLUMPS,URINE FEW /hpf (NOT SEEN); WBC,URINE 30-40 /hpf (0-5)
[2022-09-12 09:58] LABS: BACTERIA,URINE MANY /hpf (FEW); MUCUS,URINE NOT SEEN /hpf (FEW); TRICHOMONAS,URINE MODERATE (NOT SEEN)
[2022-09-12] MEDS ORDERED: metroNIDAZOLE 500 MG Tab PO ONE (12:03)
[2022-09-12] MEDS ORDERED: Nitrofurantoin Monohydrate/Macrocrystalline 100 MG Cap PO ONE (12:12)
[2022-09-12] MEDS ORDERED: Nicotine 21 MG/24 Hr Patch TRDERM ONE (16:12)
[2022-09-13 00:20] VITALS: BP 160/97; PULSE 84
[2022-09-13] MEDS ORDERED: Acetaminophen 325 MG/10.15 ML ML PO ONE (00:20)
[2022-09-13] MEDS ORDERED: Acetaminophen 325 MG Tab PO ONE (01:01)
[2022-09-13] MEDS ORDERED: Acetaminophen 325 MG Tab ONE (01:03)
== END 2022-09-13 08:30 ==
LOC: JD.ED 07:04
DX: F41.9 Anxiety disorder, unspecified (principal); F32.9 Major depressive disorder, single episode, unspecified; J45.909 Unspecified asthma, uncomplicated; F17.210 Nicotine dependence, cigarettes, uncomplicated; E66.9 Obesity, unspecified; Z68.41 Body mass index [BMI] 40.0-44.9, adult; Z88.0 Allergy status to penicillin; Z88.1 Allergy status to other antibiotic agents; Z88.8 Allergy status to other drugs, medicaments and biological substances; Z88.2 Allergy status to sulfonamides; Z79.899 Other long term (current) drug therapy
CPT/HCPCS: 36415; 80053; 80143; 80179; 80306; 80307; 81001; 81025; 84443; 85025; 87086; 99285; A9270

== ENCOUNTER 2023-08-10 13:07 | Emergency (ER) | payer MEDICAID ==
[2023-08-10] MEDS: Sodium Chloride 0.9% 10 ML Syringe FLUSH PRN (13:25)
[2023-08-10 13:53] LABS: BASOPHILS ABSOLUTE AUTO 0.1 K/mm3 (0.0-0.2); BASOPHILS PERCENT AUTO 0.6 % (0.0-1.0); EOSINOPHILS ABSOLUTE AUTO 0.2 K/mm3 (0.0-0.4); EOSINOPHILS PERCENT AUTO 3.1 % (0.0-6.0); HEMATOCRIT 41.9 % (37.0-47.0); HEMOGLOBIN 13.9 gm/dl (12.0-16.0); IMMATURE GRAN ABSOLUTE AUTO 0.02 K/mm3 (0.00-0.05); IMMATURE GRAN PERCENT AUTO 0.3 % (0.0-0.4); LYMPHOCYTES ABSOLUTE AUTO 2.7 K/mm3 (1.0-4.8); LYMPHOCYTES PERCENT AUTO 35.2 % (24.0-44.0); MEAN CORPUSCULAR HEMOGLOBIN 29.3 pg (28.0-32.0); MEAN CORPUSCULAR HGB CONC 33.2 g/dl (32.0-36.0); MEAN CORPUSCULAR VOLUME 88.2 fl (83.0-99.0); MEAN PLATELET VOLUME 9.3 fl (9.4-12.3); MONOCYTES ABSOLUTE AUTO 0.5 K/mm3 (0.0-0.8); MONOCYTES PERCENT AUTO 6.9 % (0.0-8.0); NEUTROPHILS ABSOLUTE AUTO 4.2 K/mm3 (1.8-7.7); NEUTROPHILS PERCENT AUTO 53.9 % (41.0-71.0); PLATELET COUNT,PLT 304 K/mm3 (150-400); RED BLOOD CELL COUNT 4.75 M/mm3 (4.10-5.30); WHITE BLOOD CELL COUNT,WBC 7.72 K/mm3 (3.9-11.3)
[2023-08-10 14:10] LABS: ALBUMIN 3.3 g/dl (3.4-5.0); BILIRUBIN TOTAL 0.3 mg/dL (0.2-1.0); BUN/CREATININE RATIO 8.9 (14-18); CALCIUM 9.1 mg/dL (8.5-10.1); CREATININE 0.9 mg/dL (0.55-1.02); EST CRCL DRUG DOSING (CG) 69.6 mL/min; PROTEIN TOTAL,TP 6.6 g/dl (6.4-8.2)
[2023-08-10 16:49] VITALS: BP 152/92; PULSE 96
== END 2023-08-10 16:55 | disposition home or self-care (01) ==
LOC: JD.ED 13:07
DX: R07.89 Other chest pain (principal); I10 Essential (primary) hypertension; J45.909 Unspecified asthma, uncomplicated; E11.9 Type 2 diabetes mellitus without complications; F17.210 Nicotine dependence, cigarettes, uncomplicated; E66.9 Obesity, unspecified; Z68.42 Body mass index [BMI] 45.0-49.9, adult; Z86.16 Personal history of COVID-19; Z79.899 Other long term (current) drug therapy; Z88.0 Allergy status to penicillin; Z88.2 Allergy status to sulfonamides; Z88.8 Allergy status to other drugs, medicaments and biological substances
CPT/HCPCS: 36415; 71046; 80053; 84484; 85025; 85379; 93005; 99285; J3490

== ENCOUNTER 2024-04-06 16:26 | Emergency (ER) | payer MEDICAID ==
[2024-04-06] MEDS: Albuterol/Ipratropium 3.0-0.5 MG/3 ML Neb Soln NEB ONE (17:10)
[2024-04-06] MEDS: Albuterol 6.7 GM Inhaler INH ONE (18:22)
[2024-04-06] MEDS: Doxycycline Monohydrate 100 MG Cap PO ONE (18:26)
[2024-04-06 18:31] VITALS: BP 140/82; PULSE 106
== END 2024-04-06 18:28 | disposition home or self-care (01) ==
LOC: JD.ED 16:26
DX: J18.9 Pneumonia, unspecified organism (principal); I10 Essential (primary) hypertension; J45.909 Unspecified asthma, uncomplicated; E66.9 Obesity, unspecified; Z68.43 Body mass index [BMI] 50.0-59.9, adult; Z86.16 Personal history of COVID-19; Z88.0 Allergy status to penicillin; Z88.8 Allergy status to other drugs, medicaments and biological substances; Z88.2 Allergy status to sulfonamides; Z88.1 Allergy status to other antibiotic agents; Z79.52 Long term (current) use of systemic steroids; Z79.899 Other long term (current) drug therapy
CPT/HCPCS: 71046; 87428; 94640; 99285; A9270; J7620-GY

== ENCOUNTER 2024-06-26 05:41 | Inpatient (IN) | payer MEDICAID ==
[2024-06-26] MEDS: Albuterol/Ipratropium 3.0-0.5 MG/3 ML Neb Soln NEB SCH ×2 (06:19→10:18)
[2024-06-26 06:44] LABS: BASOPHILS PERCENT AUTO 0.2 % (0.0-1.0); EOSINOPHILS ABSOLUTE AUTO 0.1 K/mm3 (0.0-0.4); EOSINOPHILS PERCENT AUTO 1.1 % (0.0-6.0); HEMATOCRIT 39.9 % (37.0-47.0); HEMOGLOBIN 12.7 gm/dl (12.0-16.0); IMMATURE GRAN ABSOLUTE AUTO 0.06 K/mm3 (0.00-0.05); IMMATURE GRAN PERCENT AUTO 0.5 % (0.0-0.4); LYMPHOCYTES ABSOLUTE AUTO 1.5 K/mm3 (1.0-4.8); LYMPHOCYTES PERCENT AUTO 12.3 % (24.0-44.0); MEAN CORPUSCULAR HEMOGLOBIN 28.2 pg (28.0-32.0); MEAN CORPUSCULAR HGB CONC 31.8 g/dl (32.0-36.0); MEAN CORPUSCULAR VOLUME 88.7 fl (83.0-99.0); MEAN PLATELET VOLUME 9.1 fl (9.4-12.3); MONOCYTES ABSOLUTE AUTO 0.5 K/mm3 (0.0-0.8); MONOCYTES PERCENT AUTO 3.7 % (0.0-8.0); NEUTROPHILS PERCENT AUTO 82.2 % (41.0-71.0); PLATELET COUNT,PLT 281 K/mm3 (150-400); WHITE BLOOD CELL COUNT,WBC 12.12 K/mm3 (3.9-11.3)
[2024-06-26] MEDS: Sodium Chloride 0.9% 500 ML IV ONE (06:47)
[2024-06-26] MEDS: Sodium Chloride 0.9% 10 ML Syringe FLUSH PRN (06:48)
[2024-06-26 07:06] LABS: LACTIC ACID 1.6 mmol/L (0.4-2.0)
[2024-06-26 07:10] LABS: A/G RATIO 0.9 (1-2); ALBUMIN 3.3 g/dl (3.4-5.0); ANION GAP 12.7 (5-15); BILIRUBIN TOTAL 1.1 mg/dL (0.2-1.0); BUN/CREATININE RATIO 7.8 (14-18); CALCIUM 8.6 mg/dL (8.5-10.1); CREATININE 0.9 mg/dL (0.55-1.02); EST CRCL DRUG DOSING (CG) 69.6 mL/min; POTASSIUM,K 3.7 mEq/L (3.5-5.1)
[2024-06-26 07:11] LABS: PRO B-TYPE NATRIUR PEPT,BNPPRO 500 pg/mL (0-125)
[2024-06-26 07:18] LABS: HCG QUALITATIVE,SERUM NEGATIVE (NEGATIVE)
[2024-06-26 07:20] LABS: CORONAVIRUS COVID-19 NAA NEGATIVE (NEGATIVE); INFLUENZA A NAA NEGATIVE (NEGATIVE); RESPIRATORY SYNCYTIAL VIR NAA NEGATIVE (NEGATIVE)
[2024-06-26] MEDS: Levofloxacin/Dextrose 5%-Water 750 MG in Premix Bag 1 BAG IV ONE (08:13)
[2024-06-26] MEDS ORDERED: Acetaminophen 325 MG Tab PO PRN (08:32)
[2024-06-26] MEDS ORDERED: Ondansetron 4 MG/2 ML SDV IV PRN (08:32)
[2024-06-26] MEDS ORDERED: Docusate Sodium 100 MG Cap PO PRN (08:32)
[2024-06-26] MEDS ORDERED: Ondansetron 4 MG Tab.DIS PO PRN (08:32)
[2024-06-26] MEDS ORDERED: Polyethylene Glycol 3350 Powder 17 GM Packet PO PRN (08:32)
[2024-06-26] MEDS: HYDROmorphone 0.5 MG/0.5 ML Syringe IVPUSH ONE (09:56)
[2024-06-26] MEDS: Enoxaparin 40 MG/0.4 ML Syringe SUBCUT SCH (09:57)
[2024-06-26] MEDS ORDERED: Sodium Chloride 0.9% 100 ML IV SCH (12:15)
[2024-06-26] MEDS: Nicotine 21 MG/24 Hr Patch TRDERM SCH (12:42)
[2024-06-26] MEDS: Benzocaine/Cetylpyridinium/Menthol Lozenge MUCMEM PRN (12:45)
[2024-06-26] MEDS: Iopamidol 755 Mg/ML 100 ML Bottle IVPUSH ONE (12:50)
[2024-06-26] MEDS: guaiFENesin/Dextromethorphan 100-10 MG/5 ML Soln 5 ML Cup PO SCH (13:46)
[2024-06-26] MEDS: guaiFENesin 600 MG Tab.ER PO PRN (14:51)
[2024-06-26] MEDS: Albuterol 0.083% 2.5 MG/3 ML Neb Soln NEB PRN (15:00)
[2024-06-26 15:43] LABS: BICARBONATE,ARTERIAL 19.2 meq/L (22.0-26.0); PCO2 ARTERIAL 31.6 mmHg (35.0-45.0)
[2024-06-26] MEDS: LORazepam 0.5 MG Tab PO PRN (16:39)
[2024-06-26] MEDS: Furosemide 40 MG/4 ML VIAL IVPUSH ONE (16:40)
[2024-06-26 18:34] LABS: INR 1.03; PROTHROMBIN TIME 10.9 SECONDS (9.7-12.0)
[2024-06-26] MEDS: traMADol 50 MG Tab PO PRN (18:34)
[2024-06-26] MEDS: Lidocaine 1% 10 ML MDV ONE (18:46)
[2024-06-26] MEDS: Lidocaine 2% 5 ML SDV INJECT ONE (18:47)
[2024-06-26] MEDS: Codeine/guaiFENesin 10-100 MG/5 ML Syrup 5 ML Cup PO PRN (20:28)
[2024-06-26] MEDS: lamoTRIgine 100 MG Tab PO SCH (20:29)
[2024-06-26] MEDS: hydrOXYzine HCl 25 MG Tab PO PRN (20:44)
[2024-06-27] MEDS: Furosemide 40 MG/4 ML VIAL IVPUSH ONE ×2 (03:05→18:54)
[2024-06-27 03:06] LABS: BASE EXCESS ARTERIAL -1.2 (-2-2.0); BICARBONATE,ARTERIAL 23.6 meq/L (22.0-26.0)
[2024-06-27 05:20] LABS: A/G RATIO 0.7 (1-2); ALANINE AMINOTRANSFERASE,ALT 28 U/L (14-59); ALBUMIN 2.8 g/dl (3.4-5.0); ALKALINE PHOSPHATASE 91 U/L (46-116); ANION GAP 13.6 (5-15); ASPARTATE AMNIOTRANSFERASE,AST 50 U/L (15-37); BILIRUBIN TOTAL 1.3 mg/dL (0.2-1.0); BLOOD UREA NITROGEN,BUN 9 mg/dL (7-18); CALCIUM 8.6 mg/dL (8.5-10.1); CARBON DIOXIDE,CO2 25 mEq/L (21-32); CHLORIDE,CL 100 mEq/L (98-107); CREATININE 0.9 mg/dL (0.55-1.02); ESTIMATED GFR 81 mL/min (>60); GLUCOSE RANDOM 131 mg/dL (70-99); MAGNESIUM 1.6 mg/dL (1.8-2.4); POTASSIUM,K 3.6 mEq/L (3.5-5.1); PROTEIN TOTAL,TP 6.7 g/dl (6.4-8.2); SODIUM,NA 135 mEq/L (136-145)
[2024-06-27 05:29] LABS: BASOPHILS PERCENT AUTO 0.1 % (0.0-1.0); HEMATOCRIT 42.7 % (37.0-47.0); HEMOGLOBIN 13.6 gm/dl (12.0-16.0); IMMATURE GRAN ABSOLUTE AUTO 0.05 K/mm3 (0.00-0.05); IMMATURE GRAN PERCENT AUTO 0.4 % (0.0-0.4); LYMPHOCYTES ABSOLUTE AUTO 0.9 K/mm3 (1.0-4.8); LYMPHOCYTES PERCENT AUTO 7.1 % (24.0-44.0); MEAN CORPUSCULAR HEMOGLOBIN 27.9 pg (28.0-32.0); MEAN CORPUSCULAR HGB CONC 31.9 g/dl (32.0-36.0); MEAN CORPUSCULAR VOLUME 87.5 fl (83.0-99.0); MEAN PLATELET VOLUME 9.6 fl (9.4-12.3); MONOCYTES ABSOLUTE AUTO 0.4 K/mm3 (0.0-0.8); MONOCYTES PERCENT AUTO 2.9 % (0.0-8.0); NEUTROPHILS ABSOLUTE AUTO 11.7 K/mm3 (1.8-7.7); NEUTROPHILS PERCENT AUTO 89.5 % (41.0-71.0); PLATELET COUNT,PLT 273 K/mm3 (150-400); RED BLOOD CELL COUNT 4.88 M/mm3 (4.10-5.30); WHITE BLOOD CELL COUNT,WBC 13.05 K/mm3 (3.9-11.3)
[2024-06-27 06:05] LABS: C-REACTIVE PROTEIN > 25.00 mg/dL (<0.30)
[2024-06-27] MEDS: Levofloxacin/Dextrose 5%-Water 750 MG in Premix Bag 1 BAG IV SCH (07:03)
[2024-06-27 08:19] LABS: O2 SATURATION ARTERIAL 97.9 % (96.0-97.0)
[2024-06-27 08:20] LABS: BICARBONATE,ARTERIAL 26.5 meq/L (22.0-26.0)
[2024-06-27] MEDS: Magnesium Sulf/Wat 2 GM/50 mL 2 GM in Premix Bag 1 BAG IV ONE (08:20)
[2024-06-27] MEDS: VANCOmycin 1.25 GM/250 ML 1.25 GM in Premix Bag 1 BAG IV SCH (08:39)
[2024-06-27] MEDS: Acetaminophen 325 MG Tab PO PRN (08:45)
[2024-06-27 08:58] LABS: APPEARANCE,URINE CLEAR (Clear); BILIRUBIN,URINE NEGATIVE (Negative); COLOR,URINE YELLOW (Yellow); GLUCOSE,URINE NEGATIVE (Negative); KETONES,URINE NEGATIVE (Negative); LEUKOCYTE ESTERASE,URINE TRACE (Negative); NITRITE,URINE NEGATIVE (Negative); OCCULT BLOOD,URINE TRACE-LYSED (Negative); PROTEIN,URINE NEGATIVE (Negative); UROBILINOGEN,URINE 0.2 (0.2-1.0)
[2024-06-27 09:03] LABS: RBC,URINE 0-5 /hpf (0-5); WBC,URINE 0-5 /hpf (0-5)
[2024-06-27 09:04] LABS: BACTERIA,URINE FEW /hpf (FEW); MUCUS,URINE FEW /hpf (FEW)
[2024-06-27] MEDS: Furosemide 100 MG/10 ML SDV IVPUSH ONE (14:32)
[2024-06-27] MEDS: methylPREDNISolone Sodium Succinate 40 MG/1 ML SDV IVPUSH SCH (14:33)
[2024-06-27] MEDS: methylPREDNISolone Sodium Succinate 40 MG/1 ML SDV IVPUSH ONE (18:54)
[2024-06-28 05:42] LABS: HEMATOCRIT 36.6 % (37.0-47.0); IMMATURE GRAN ABSOLUTE AUTO 0.03 K/mm3 (0.00-0.05); IMMATURE GRAN PERCENT AUTO 0.4 % (0.0-0.4); LYMPHOCYTES ABSOLUTE AUTO 0.7 K/mm3 (1.0-4.8); LYMPHOCYTES PERCENT AUTO 9.3 % (24.0-44.0); MEAN CORPUSCULAR HEMOGLOBIN 27.9 pg (28.0-32.0); MEAN CORPUSCULAR VOLUME 87.4 fl (83.0-99.0); MEAN PLATELET VOLUME 9.3 fl (9.4-12.3); MONOCYTES ABSOLUTE AUTO 0.2 K/mm3 (0.0-0.8); MONOCYTES PERCENT AUTO 2.4 % (0.0-8.0); NEUTROPHILS ABSOLUTE AUTO 6.5 K/mm3 (1.8-7.7); NEUTROPHILS PERCENT AUTO 87.9 % (41.0-71.0); PLATELET COUNT,PLT 294 K/mm3 (150-400); RED BLOOD CELL COUNT 4.19 M/mm3 (4.10-5.30); WHITE BLOOD CELL COUNT,WBC 7.44 K/mm3 (3.9-11.3)
[2024-06-28 05:48] LABS: HEMOGLOBIN 11.7 gm/dl (12.0-16.0)
[2024-06-28 05:51] LABS: A/G RATIO 0.6 (1-2); ALANINE AMINOTRANSFERASE,ALT 29 U/L (14-59); ALBUMIN 2.5 g/dl (3.4-5.0); ALKALINE PHOSPHATASE 85 U/L (46-116); ANION GAP 13.8 (5-15); ASPARTATE AMNIOTRANSFERASE,AST 39 U/L (15-37); BILIRUBIN TOTAL 0.5 mg/dL (0.2-1.0); BLOOD UREA NITROGEN,BUN 17 mg/dL (7-18); BUN/CREATININE RATIO 18.9 (14-18); CARBON DIOXIDE,CO2 28 mEq/L (21-32); CHLORIDE,CL 102 mEq/L (98-107); CREATININE 0.9 mg/dL (0.55-1.02); ESTIMATED GFR 81 mL/min (>60); GLUCOSE RANDOM 141 mg/dL (70-99); MAGNESIUM 2.1 mg/dL (1.8-2.4); POTASSIUM,K 3.8 mEq/L (3.5-5.1); PROTEIN TOTAL,TP 6.7 g/dl (6.4-8.2); SODIUM,NA 140 mEq/L (136-145); VANCOMYCIN RANDOM 7.2 ug/mL
[2024-06-28 06:24] LABS: C-REACTIVE PROTEIN > 25.00 mg/dL (<0.30)
[2024-06-28] MEDS: VANCOmycin 1.5 GM/300 ML 1.5 GM in Premix Bag 1 BAG IV SCH (08:25)
[2024-06-28 08:34] LABS: BICARBONATE,ARTERIAL 29.2 meq/L (22.0-26.0); O2 SATURATION ARTERIAL 98.9 % (96.0-97.0)
[2024-06-28 08:35] LABS: BASE EXCESS ARTERIAL 4.9 (-2-2.0)
[2024-06-28] MEDS: Furosemide 40 MG/4 ML VIAL IVPUSH ONE (16:28)
[2024-06-28] MEDS: Budesonide 0.5 MG/2 ML Neb Susp NEB SCH (20:56)
[2024-06-29 05:27] LABS: BASOPHILS PERCENT AUTO 0.1 % (0.0-1.0); HEMATOCRIT 36.1 % (37.0-47.0); HEMOGLOBIN 11.6 gm/dl (12.0-16.0); IMMATURE GRAN ABSOLUTE AUTO 0.04 K/mm3 (0.00-0.05); IMMATURE GRAN PERCENT AUTO 0.4 % (0.0-0.4); LYMPHOCYTES PERCENT AUTO 9.8 % (24.0-44.0); MEAN CORPUSCULAR HEMOGLOBIN 28.4 pg (28.0-32.0); MEAN CORPUSCULAR HGB CONC 32.1 g/dl (32.0-36.0); MEAN CORPUSCULAR VOLUME 88.3 fl (83.0-99.0); MEAN PLATELET VOLUME 9.1 fl (9.4-12.3); MONOCYTES ABSOLUTE AUTO 0.4 K/mm3 (0.0-0.8); NEUTROPHILS PERCENT AUTO 85.7 % (41.0-71.0); PLATELET COUNT,PLT 328 K/mm3 (150-400); RED BLOOD CELL COUNT 4.09 M/mm3 (4.10-5.30); WHITE BLOOD CELL COUNT,WBC 10.47 K/mm3 (3.9-11.3)
[2024-06-29 05:41] LABS: A/G RATIO 0.6 (1-2); ALBUMIN 2.4 g/dl (3.4-5.0); ANION GAP 9.8 (5-15); BILIRUBIN TOTAL 0.4 mg/dL (0.2-1.0); BUN/CREATININE RATIO 31.1 (14-18); C-REACTIVE PROTEIN 13.1 mg/dL (<0.30); CALCIUM 9.2 mg/dL (8.5-10.1); CREATININE 0.9 mg/dL (0.55-1.02); EST CRCL DRUG DOSING (CG) 69.6 mL/min; POTASSIUM,K 3.8 mEq/L (3.5-5.1); PROTEIN TOTAL,TP 6.3 g/dl (6.4-8.2)
[2024-06-29] MEDS: Melatonin 3 MG Tab PO PRN (20:03)
[2024-06-30 05:24] LABS: BASOPHILS PERCENT AUTO 0.1 % (0.0-1.0); HEMATOCRIT 35.8 % (37.0-47.0); HEMOGLOBIN 11.5 gm/dl (12.0-16.0); IMMATURE GRAN ABSOLUTE AUTO 0.04 K/mm3 (0.00-0.05); IMMATURE GRAN PERCENT AUTO 0.6 % (0.0-0.4); LYMPHOCYTES ABSOLUTE AUTO 1.3 K/mm3 (1.0-4.8); LYMPHOCYTES PERCENT AUTO 18.5 % (24.0-44.0); MEAN CORPUSCULAR HGB CONC 32.1 g/dl (32.0-36.0); MEAN CORPUSCULAR VOLUME 87.3 fl (83.0-99.0); MEAN PLATELET VOLUME 9.2 fl (9.4-12.3); MONOCYTES ABSOLUTE AUTO 0.5 K/mm3 (0.0-0.8); MONOCYTES PERCENT AUTO 6.5 % (0.0-8.0); NEUTROPHILS ABSOLUTE AUTO 5.3 K/mm3 (1.8-7.7); NEUTROPHILS PERCENT AUTO 74.3 % (41.0-71.0); PLATELET COUNT,PLT 318 K/mm3 (150-400); WHITE BLOOD CELL COUNT,WBC 7.09 K/mm3 (3.9-11.3)
[2024-06-30 06:14] LABS: A/G RATIO 0.6 (1-2); ALBUMIN 2.5 g/dl (3.4-5.0); ANION GAP 12.2 (5-15); BILIRUBIN TOTAL 0.3 mg/dL (0.2-1.0); BUN/CREATININE RATIO 31.3 (14-18); C-REACTIVE PROTEIN 5.47 mg/dL (<0.30); CALCIUM 9.1 mg/dL (8.5-10.1); CREATININE 0.8 mg/dL (0.55-1.02); EST CRCL DRUG DOSING (CG) 78.3 mL/min; MAGNESIUM 1.9 mg/dL (1.8-2.4); POTASSIUM,K 4.2 mEq/L (3.5-5.1); PROTEIN TOTAL,TP 6.4 g/dl (6.4-8.2)
[2024-06-30] MEDS: Tiotropium BR/Olodaterol HCL 4 GM Inhalation Spray 2.5mcg/1 dose; 10 doses INH SCH (09:02)
[2024-06-30] MEDS: Nicotine Polacrilex 2 MG Gum CHEW PRN (15:01)
[2024-07-01 04:21] LABS: HEMATOCRIT 37.3 % (37.0-47.0); MEAN CORPUSCULAR HEMOGLOBIN 28.3 pg (28.0-32.0); MEAN CORPUSCULAR HGB CONC 32.2 g/dl (32.0-36.0); MEAN PLATELET VOLUME 9.2 fl (9.4-12.3); PLATELET COUNT,PLT 295 K/mm3 (150-400); RED BLOOD CELL COUNT 4.24 M/mm3 (4.10-5.30); WHITE BLOOD CELL COUNT,WBC 7.47 K/mm3 (3.9-11.3)
[2024-07-01 05:09] LABS: ANION GAP 12.4 (5-15); BUN/CREATININE RATIO 27.1 (14-18); C-REACTIVE PROTEIN 2.14 mg/dL (<0.30); CALCIUM 8.9 mg/dL (8.5-10.1); CREATININE 0.7 mg/dL (0.55-1.02); EST CRCL DRUG DOSING (CG) 89.48 mL/min; POTASSIUM,K 4.4 mEq/L (3.5-5.1)
[2024-07-02 04:41] LABS: HEMATOCRIT 41.2 % (37.0-47.0); HEMOGLOBIN 13.1 gm/dl (12.0-16.0); MEAN CORPUSCULAR HEMOGLOBIN 27.8 pg (28.0-32.0); MEAN CORPUSCULAR HGB CONC 31.8 g/dl (32.0-36.0); MEAN CORPUSCULAR VOLUME 87.3 fl (83.0-99.0); MEAN PLATELET VOLUME 9.4 fl (9.4-12.3); PLATELET COUNT,PLT 357 K/mm3 (150-400); RED BLOOD CELL COUNT 4.72 M/mm3 (4.10-5.30)
[2024-07-02 05:06] LABS: BUN/CREATININE RATIO 18.9 (14-18); C-REACTIVE PROTEIN 1.07 mg/dL (<0.30); CREATININE 0.9 mg/dL (0.55-1.02); EST CRCL DRUG DOSING (CG) 69.6 mL/min
[2024-07-02 08:13] VITALS: BP 141/80; PULSE 89
== END 2024-07-02 11:15 | disposition home or self-care (01) | DRG 193 ==
LOC: JD.ED 05:41 → JD.MS 08:32 → JD.ICU 06-27 07:13
PROVIDERS: ADMIT Family Medicine; ATTEND Student in an Organized Health Care Education/Training Program
PROC: 4A133R1 Monitoring of Arterial Saturation, Peripheral, Percutaneous Approach (ICD-10-PCS; principal; 2024-06-26)
DX: J18.9 Pneumonia, unspecified organism (principal); J96.01 Acute respiratory failure with hypoxia; Z68.43 Body mass index [BMI] 50.0-59.9, adult; L03.116 Cellulitis of left lower limb; H66.90 Otitis media, unspecified, unspecified ear; I10 Essential (primary) hypertension; F41.9 Anxiety disorder, unspecified; F31.9 Bipolar disorder, unspecified; F12.90 Cannabis use, unspecified, uncomplicated; E83.42 Hypomagnesemia; J45.20 Mild intermittent asthma, uncomplicated; G47.34 Idiopathic sleep related nonobstructive alveolar hypoventilation; F43.12 Post-traumatic stress disorder, chronic; E66.01 Morbid (severe) obesity due to excess calories; Z88.0 Allergy status to penicillin; Z88.8 Allergy status to other drugs, medicaments and biological substances; Z79.52 Long term (current) use of systemic steroids; Z86.16 Personal history of COVID-19; Z72.0 Tobacco use; Z79.899 Other long term (current) drug therapy; Z98.890 Other specified postprocedural states; Z88.2 Allergy status to sulfonamides
CPT/HCPCS: 0241U; 36415; 36600; 71045; 71045-26; 71275; 71275-26; 80048; 80053; 80202; 81001; 82803; 83605; 83735; 83880; 84484; 84703; 85025; 85027; 85610; 86140; 86738; 87040; 87070; 87086; 87205; 87641; 87899; 93005; 93010; 93306; 94640; 94660; 94667; 94668; 94761; 94762; 96361; 96365; 99223; 99232; 99233; 99239; 99285; 99285-25; A9270-GY; J1650; J1940; J1956; J2003; J2919; J3372; J3475; J3490; J7030; U0002